=== PATIENT | female | born 1995 | race Caucasian/White ===

== ENCOUNTER 2016-04-27 08:36 | Emergency (ER) | payer OTHER ==
[2016-04-27 08:41] VITALS: RESP 18
[2016-04-27] MEDS ORDERED: FAMOTIDINE 20 MG/2 ML VIAL IV STA (08:47)
[2016-04-27] MEDS ORDERED: methylPREDNISolone SOD SUCCI 125 MG/2 ML VIAL IV STA (08:47)
--- NOTE | 2016-04-27 08:57 | ED ---
General Adult HPI - General Chief complaint: Nausea/Vomiting/Diarrhea Stated complaint: rash Time Seen by Provider: 04/27/16 08:41 Source: patient, EMS, RN notes reviewed Mode of arrival: EMS Limitations: no limitations - History of Present Illness Initial comments: 20-year-old female presents emergency Department chief complaint rash. Patient states started the last night early this morning. Patient states she went to sleep more upright was worse. Patient has not taken anything for. Patient was given Benadryl, Zofran by EMS and which symptoms are starting to improve. She states she was. She. Patient denies any new soaps, lotions, detergents. Patient states that it's from her head to her distal leg. Patient denies any new medications or contacts with similar symptoms. Patient states she has no difficulty breathing or difficulty swallowing. - Related Data Previous Rx's Medication Instructions Recorded diphenhydrAMINE [Benadryl] 50 mg PO QID PRN #20 capsule 04/27/16 predniSONE 50 mg PO DAILY #3 tab 04/27/16 Allergies Allergy/AdvReac Type Severity Reaction Status Date / Time No Known Allergies Allergy Verified 04/27/16 09:05 Review of Systems ROS Statement: Those systems with pertinent positive or pertinent negative responses have been documented in the HPI. ROS Other: All systems not noted in ROS Statement are negative. Past Medical History Past Medical History: Asthma Additional Past Medical History / Comment(s): PT STATES OCCASIONAL SHARP PAIN IN CHEST WHEN SHE TAKES A BREATH - STATES HER FATHER HAS THE SAME PROBLEM., MISSED -DENIES ANY VAGINAL BLEEDING. History of Any Multi-Drug Resistant Organisms: None Reported Past Surgical History: Orthopedic Surgery Additional Past Surgical History / Comment(s): left wrist fx, d and c 2014 Past Anesthesia/Blood Transfusion Reactions: No Reported Reaction Additional Past Anesthesia/Blood Transfusion Reaction / Comment(s): STATES SHE WOKE UP CRYING. Past Psychological History: Anxiety, Bipolar, Depression Additional Psychological History / Comment(s): no meds x 2 years Smoking Status: Current every day smoker Past Alcohol Use History: None Reported Additional Past Alcohol Use History / Comment(s): STATES NO ALCOHOL FOR 2 MONTHS. Past Drug Use History: Cocaine, Marijuana Additional Drug Use History / Comment(s): SMOKES MARIJUANA DAILY- quit 08/20/2015 - Past Family History Mother Family Medical History: No Reported History General Exam Limitations: no limitations General appearance: alert, in no apparent distress Head exam: Present: atraumatic, normocephalic, normal inspection Eye exam: Present: normal appearance, PERRL, EOMI. Absent: scleral icterus, conjunctival injection, periorbital swelling ENT exam: Present: normal exam, normal oropharynx, mucous membranes moist, TM's normal bilaterally Neck exam: Present: normal inspection. Absent: tenderness, meningismus, lymphadenopathy Respiratory exam: Present: normal lung sounds bilaterally. Absent: respiratory distress, wheezes, rales, rhonchi, stridor Cardiovascular Exam: Present: regular rate, normal rhythm, normal heart sounds. Absent: systolic murmur, diastolic murmur, rubs, gallop, clicks Neurological exam: Present: alert, oriented X3, CN II-XII intact Skin exam: Present: rash, urticaria (Diffuse urticaria varying sizes from the head and to the mid lower leg) Course Vital Signs 04/27/16 08:38 Temperature 98.9 F Pulse Rate 114 H Respiratory 18 Rate Blood Pressure 98/63 O2 Sat by Pulse 96 Oximetry Medical Decision Making - Medical Decision Making 20-year-old female presented for rash. Patient's rash has resolved after sign metal, Benadryl, Pepcid. Patient had urticaria noted. Patient will be discharged on Bentyl, prednisone. Return parameters were discussed. Disposition Clinical Impression: Urticaria Disposition: HOME SELF-CARE Condition: Stable Instructions: Urticaria (ED) Additional Instructions: Please return to the Emergency Department if symptoms worsen or any other concerns. Prescriptions: diphenhydrAMINE [Benadryl] 50 mg PO QID PRN #20 capsule PRN Reason: ALLERGIC symptoms predniSONE 50 mg PO DAILY #3 tab Time of Disposition: 09:53
[2016-04-27 10:15] VITALS: BP 110/68; PULSE 79; TEMP 97.8
== END 2016-04-27 10:15 | disposition home or self-care (01) ==
LOC: EC 08:36
DX: L50.9 Urticaria, unspecified (principal); R11.2 Nausea with vomiting, unspecified; R19.7 Diarrhea, unspecified; F17.200 Nicotine dependence, unspecified, uncomplicated
CPT/HCPCS: 96374; 96375; 99284; J2930

== ENCOUNTER 2016-04-28 11:29 | Emergency (ER) | payer OTHER ==
[2016-04-28 11:37] VITALS: BP 110/56; PULSE 87; RESP 16; TEMP 97.7
[2016-04-28] MEDS ORDERED: methylPREDNISolone SOD SUCCI 125 MG/2 ML VIAL IV STA (11:38)
[2016-04-28] MEDS ORDERED: FAMOTIDINE 20 MG/2 ML VIAL IV STA (11:38)
--- NOTE | 2016-04-28 11:41 | ED ---
Allergic Reaction HPI - General Chief complaint: Allergic Reaction Stated complaint: Allergic Reaction Time Seen by Provider: 04/28/16 11:34 Source: patient, EMS, RN notes reviewed Mode of arrival: EMS Limitations: no limitations - History of Present Illness Initial Comments: 20-year-old female presents emergency Department chief complaint hives. Patient was seen here yesterday diagnosed with urticaria. Patient states she did not take any medications as she was directed. Patient states that she cannot make it the pharmacy though the pharmacy was open here. She states that she went home. Patient woke up today with similar rash. Patient states she's been itching. Denies any difficulty breathing or difficulty swallowing. - Related Data Previous Rx's Medication Instructions Recorded diphenhydrAMINE [Benadryl] 50 mg PO QID PRN #20 capsule 04/28/16 predniSONE 50 mg PO DAILY #3 tab 04/28/16 Allergies Allergy/AdvReac Type Severity Reaction Status Date / Time No Known Allergies Allergy Verified 04/28/16 11:35 Review of Systems ROS Statement: Those systems with pertinent positive or pertinent negative responses have been documented in the HPI. ROS Other: All systems not noted in ROS Statement are negative. Past Medical History Past Medical History: Asthma Additional Past Medical History / Comment(s): PT STATES OCCASIONAL SHARP PAIN IN CHEST WHEN SHE TAKES A BREATH - STATES HER FATHER HAS THE SAME PROBLEM., MISSED -DENIES ANY VAGINAL BLEEDING. History of Any Multi-Drug Resistant Organisms: None Reported Past Surgical History: Orthopedic Surgery Additional Past Surgical History / Comment(s): left wrist fx, d and c 2014 Past Anesthesia/Blood Transfusion Reactions: No Reported Reaction Additional Past Anesthesia/Blood Transfusion Reaction / Comment(s): STATES SHE WOKE UP CRYING. Past Psychological History: Anxiety, Bipolar, Depression Additional Psychological History / Comment(s): no meds x 2 years Smoking Status: Current every day smoker Past Alcohol Use History: None Reported Additional Past Alcohol Use History / Comment(s): STATES NO ALCOHOL FOR 2 MONTHS. Past Drug Use History: Marijuana Additional Drug Use History / Comment(s): SMOKES MARIJUANA DAILY- quit 08/20/2015 - Past Family History Mother Family Medical History: No Reported History General Exam Limitations: no limitations General appearance: alert, in no apparent distress Head exam: Present: atraumatic, normocephalic, normal inspection Eye exam: Present: normal appearance, PERRL, EOMI. Absent: scleral icterus, conjunctival injection, periorbital swelling ENT exam: Present: normal oropharynx, mucous membranes moist Neck exam: Present: normal inspection. Absent: tenderness, meningismus, lymphadenopathy Respiratory exam: Present: normal lung sounds bilaterally. Absent: respiratory distress, wheezes, rales, rhonchi, stridor Cardiovascular Exam: Present: regular rate, normal rhythm, normal heart sounds. Absent: systolic murmur, diastolic murmur, rubs, gallop, clicks Skin exam: Present: urticaria (Noted on the arms, right torso region) Course Vital Signs 04/28/16 11:32 Temperature 97.7 F Pulse Rate 87 Respiratory 16 Rate Blood Pressure 110/56 O2 Sat by Pulse 97 Oximetry Medical Decision Making - Medical Decision Making 20-year-old female presented for urticaria. Patient was given medication yesterday in did resolve. She has not taken medications as prescribed. Patient will be written prescriptions again advised to go directly to the pharmacy here. Patient was given return parameters. Disposition Clinical Impression: Urticaria Disposition: HOME SELF-CARE Condition: Stable Instructions: Urticaria (ED) Additional Instructions: Please return to the Emergency Department if symptoms worsen or any other concerns. Prescriptions: diphenhydrAMINE [Benadryl] 50 mg PO QID PRN #20 capsule PRN Reason: ALLERGIC symptoms predniSONE 50 mg PO DAILY #3 tab Referrals: None,Stated [Primary Care Provider] - 1-2 days Time of Disposition: 12:04
== END 2016-04-28 12:26 | disposition home or self-care (01) ==
LOC: EC 11:29
DX: L50.9 Urticaria, unspecified (principal); F17.200 Nicotine dependence, unspecified, uncomplicated
CPT/HCPCS: 99284; 96374; 96375; J2930

== ENCOUNTER 2016-04-28 22:33 | Observation (INO) | payer OTHER ==
--- NOTE | 2016-04-28 22:42 | ED ---
General Adult HPI - General Stated complaint: Overdose, Mental Health Time Seen by Provider: 04/28/16 22:37 Source: RN notes reviewed, old records reviewed - History of Present Illness Initial comments: This is a 20-year-old female here for evaluation. This patient presents to ER for evaluation of overdose. Patient admits to depression and suicidal thoughts. Patient took reportedly allegedly a full bottle of Benadryl, 2050 mg tabs, an attempt at suicide. Patient denies any other drugs or alcohol. Patient does not have significant psychiatric disease - Related Data Previous Rx's Medication Instructions Recorded diphenhydrAMINE [Benadryl] 50 mg PO QID PRN #20 capsule 04/28/16 predniSONE 50 mg PO DAILY #3 tab 04/28/16 Allergies Allergy/AdvReac Type Severity Reaction Status Date / Time No Known Allergies Allergy Verified 04/28/16 22:37 Review of Systems ROS Statement: Those systems with pertinent positive or pertinent negative responses have been documented in the HPI. ROS Other: All systems not noted in ROS Statement are negative. Past Medical History Past Medical History: Asthma Additional Past Medical History / Comment(s): PT STATES OCCASIONAL SHARP PAIN IN CHEST WHEN SHE TAKES A BREATH - STATES HER FATHER HAS THE SAME PROBLEM., MISSED -DENIES ANY VAGINAL BLEEDING. History of Any Multi-Drug Resistant Organisms: None Reported Past Surgical History: Orthopedic Surgery Additional Past Surgical History / Comment(s): left wrist fx, d and c 2014 Past Anesthesia/Blood Transfusion Reactions: No Reported Reaction Additional Past Anesthesia/Blood Transfusion Reaction / Comment(s): STATES SHE WOKE UP CRYING. Past Psychological History: Anxiety, Bipolar, Depression Additional Psychological History / Comment(s): no meds x 2 years Smoking Status: Current every day smoker Past Alcohol Use History: None Reported Additional Past Alcohol Use History / Comment(s): STATES NO ALCOHOL FOR 2 MONTHS. Past Drug Use History: Marijuana Additional Drug Use History / Comment(s): SMOKES MARIJUANA DAILY- quit 08/20/2015 - Past Family History Mother Family Medical History: No Reported History General Exam Limitations: altered mental status General appearance: alert, anxious, in distress Head exam: Present: atraumatic, normocephalic, normal inspection Eye exam: Present: normal appearance, PERRL, EOMI. Absent: scleral icterus, conjunctival injection, periorbital swelling ENT exam: Present: normal exam, mucous membranes moist Neck exam: Present: normal inspection. Absent: tenderness, meningismus, lymphadenopathy Respiratory exam: Present: normal lung sounds bilaterally. Absent: respiratory distress, wheezes, rales, rhonchi, stridor Cardiovascular Exam: Present: regular rate, normal rhythm, normal heart sounds. Absent: systolic murmur, diastolic murmur, rubs, gallop, clicks GI/Abdominal exam: Present: soft, normal bowel sounds. Absent: distended, tenderness, guarding, rebound, rigid Extremities exam: Present: normal inspection, full ROM, normal capillary refill. Absent: tenderness, pedal edema, joint swelling, calf tenderness Back exam: Present: normal inspection Neurological exam: Present: alert, oriented X3, CN II-XII intact Psychiatric exam: Present: depressed, agitated, flat affect, suicidal ideation Skin exam: Present: warm, dry, intact, normal color. Absent: rash Course Vital Signs 04/28/16 22:37 Temperature 98.4 F Pulse Rate 89 Respiratory 18 Rate Blood Pressure 140/85 O2 Sat by Pulse 98 Oximetry EKG Findings - EKG Comments: EKG Findings:: EKG shows normal sinus rhythm rate of 94, DC 1:30, QRS 86, QTC 447 Medical Decision Making - Medical Decision Making 2390 ER for evaluation of drug overdose and suicide attempt, patient found to take unknown ingestion, suspected Benadryl overdose. Patient initially monitored for hemodynamic and cardiovascular stability, will be admitted to the floor for continuing monitoring. - Lab Data Result diagrams: 04/28/16 23:05 04/28/16 23:05 Lab Results 04/28/16 04/28/16 04/28/16 Range/Units 23:05 23:05 23:05 WBC 10.4 (4.0-11.0) k/uL RBC 5.26 (3.80-5.40) m/uL Hgb 13.5 (11.4-16.0) gm/dL Hct 41.7 (34.0-46.0) % MCV 79.4 L (80.0-100.0) fL MCH 25.8 (25.0-35.0) pg MCHC 32.5 (31.0-37.0) g/dL RDW 14.9 (11.5-15.5) % Plt Count 221 (150-450) k/uL Neutrophils % 90 % Lymphocytes % 6 % Monocytes % 3 % Eosinophils % 0 % Basophils % 0 % Neutrophils # 9.4 H (1.3-7.7) k/uL Lymphocytes # 0.6 L (1.0-4.8) k/uL Monocytes # 0.3 (0-1.0) k/uL Eosinophils # 0.0 (0-0.7) k/uL Basophils # 0.0 (0-0.2) k/uL PT 11.0 (9.0-12.0) sec INR 1.1 (<1.1) Sodium 141 (137-145) mmol/L Potassium 4.1 (3.5-5.1) mmol/L Chloride 107 (98-107) mmol/L Carbon Dioxide 23 (22-30) mmol/L Anion Gap 11 mmol/L BUN 11 (7-17) mg/dL Creatinine 0.60 (0.52-1.04) mg/dL Est GFR (MDRD) Af Amer >60 (>60 ml/min/1.73 sqM) Est GFR (MDRD) Non-Af >60 (>60 ml/min/1.73 sqM) Glucose 116 H (74-99) mg/dL Calcium 9.1 (8.4-10.2) mg/dL Total Bilirubin 0.3 (0.2-1.3) mg/dL AST 15 (14-36) U/L ALT 27 (9-52) U/L Alkaline Phosphatase 55 (38-126) U/L Total Protein 6.2 L (6.3-8.2) g/dL Albumin 3.7 (3.5-5.0) g/dL Lipase (23-300) U/L Urine Color Urine Appearance (Clear) Urine pH (5.0-8.0) Ur Specific [place] (1.001-1.035) Urine Protein (Negative) Urine Glucose (UA) (Negative) Urine Ketones (Negative) Urine Blood (Negative) Urine Nitrate (Negative) Urine Bilirubin (Negative) Urine Urobilinogen (<2.0) mg/dL Ur Leukocyte Esterase (Negative) Urine HCG, Qual (Not Detectd) Salicylates <1.0 mg/dL Urine Opiates Screen (NotDetected) Ur Oxycodone Screen (NotDetected) Urine Methadone Screen (NotDetected) Ur Propoxyphene Screen (NotDetected) Acetaminophen <10.0 ug/mL Ur Barbiturates Screen (NotDetected) U Tricyclic Antidepress (NotDetected) Ur Phencyclidine Scrn (NotDetected) Ur Amphetamines Screen (NotDetected) U Methamphetamines Scrn (NotDetected) U Benzodiazepines Scrn (NotDetected) Urine Cocaine Screen (NotDetected) U Marijuana (THC) Screen (NotDetected) Serum Alcohol <10 mg/dL 04/28/16 04/28/16 04/28/16 Range/Units 23:05 23:18 23:18 WBC (4.0-11.0) k/uL RBC (3.80-5.40) m/uL Hgb (11.4-16.0) gm/dL Hct (34.0-46.0) % MCV (80.0-100.0) fL MCH (25.0-35.0) pg MCHC (31.0-37.0) g/dL RDW (11.5-15.5) % Plt Count (150-450) k/uL Neutrophils % % Lymphocytes % % Monocytes % % Eosinophils % % Basophils % % Neutrophils # (1.3-7.7) k/uL Lymphocytes # (1.0-4.8) k/uL Monocytes # (0-1.0) k/uL Eosinophils # (0-0.7) k/uL Basophils # (0-0.2) k/uL PT (9.0-12.0) sec INR (<1.1) Sodium (137-145) mmol/L Potassium (3.5-5.1) mmol/L Chloride (98-107) mmol/L Carbon Dioxide (22-30) mmol/L Anion Gap mmol/L BUN (7-17) mg/dL Creatinine (0.52-1.04) mg/dL Est GFR (MDRD) Af Amer (>60 ml/min/1.73 sqM) Est GFR (MDRD) Non-Af (>60 ml/min/1.73 sqM) Glucose (74-99) mg/dL Calcium (8.4-10.2) mg/dL Total Bilirubin (0.2-1.3) mg/dL AST (14-36) U/L ALT (9-52) U/L Alkaline Phosphatase (38-126) U/L Total Protein (6.3-8.2) g/dL Albumin (3.5-5.0) g/dL Lipase 67 (23-300) U/L Urine Color Yellow Urine Appearance Clear (Clear) Urine pH 6.5 (5.0-8.0) Ur Specific [place] 1.014 (1.001-1.035) Urine Protein Trace H (Negative) Urine Glucose (UA) Negative (Negative) Urine Ketones Negative (Negative) Urine Blood Negative (Negative) Urine Nitrate Negative (Negative) Urine Bilirubin Negative (Negative) Urine Urobilinogen <2.0 (<2.0) mg/dL Ur Leukocyte Esterase Negative (Negative) Urine HCG, Qual (Not Detectd) Salicylates mg/dL Urine Opiates Screen Not Detected (NotDetected) Ur Oxycodone Screen Not Detected (NotDetected) Urine Methadone Screen Not Detected (NotDetected) Ur Propoxyphene Screen Not Detected (NotDetected) Acetaminophen ug/mL Ur Barbiturates Screen Not Detected (NotDetected) U Tricyclic Antidepress Not Detected (NotDetected) Ur Phencyclidine Scrn Not Detected (NotDetected) Ur Amphetamines Screen Not Detected (NotDetected) U Methamphetamines Scrn Not Detected (NotDetected) U Benzodiazepines Scrn Not Detected (NotDetected) Urine Cocaine Screen Not Detected (NotDetected) U Marijuana (THC) Screen Detected H (NotDetected) Serum Alcohol mg/dL 04/28/16 Range/Units 23:18 WBC (4.0-11.0) k/uL RBC (3.80-5.40) m/uL Hgb (11.4-16.0) gm/dL Hct (34.0-46.0) % MCV (80.0-100.0) fL MCH (25.0-35.0) pg MCHC (31.0-37.0) g/dL RDW (11.5-15.5) % Plt Count (150-450) k/uL Neutrophils % % Lymphocytes % % Monocytes % % Eosinophils % % Basophils % % Neutrophils # (1.3-7.7) k/uL Lymphocytes # (1.0-4.8) k/uL Monocytes # (0-1.0) k/uL Eosinophils # (0-0.7) k/uL Basophils # (0-0.2) k/uL PT (9.0-12.0) sec INR (<1.1) Sodium (137-145) mmol/L Potassium (3.5-5.1) mmol/L Chloride (98-107) mmol/L Carbon Dioxide (22-30) mmol/L Anion Gap mmol/L BUN (7-17) mg/dL Creatinine (0.52-1.04) mg/dL Est GFR (MDRD) Af Amer (>60 ml/min/1.73 sqM) Est GFR (MDRD) Non-Af (>60 ml/min/1.73 sqM) Glucose (74-99) mg/dL Calcium (8.4-10.2) mg/dL Total Bilirubin (0.2-1.3) mg/dL AST (14-36) U/L ALT (9-52) U/L Alkaline Phosphatase (38-126) U/L Total Protein (6.3-8.2) g/dL Albumin (3.5-5.0) g/dL Lipase (23-300) U/L Urine Color Urine Appearance (Clear) Urine pH (5.0-8.0) Ur Specific [place] (1.001-1.035) Urine Protein (Negative) Urine Glucose (UA) (Negative) Urine Ketones (Negative) Urine Blood (Negative) Urine Nitrate (Negative) Urine Bilirubin (Negative) Urine Urobilinogen (<2.0) mg/dL Ur Leukocyte Esterase (Negative) Urine HCG, Qual Not Detected (Not Detectd) Salicylates mg/dL Urine Opiates Screen (NotDetected) Ur Oxycodone Screen (NotDetected) Urine Methadone Screen (NotDetected) Ur Propoxyphene Screen (NotDetected) Acetaminophen ug/mL Ur Barbiturates Screen (NotDetected) U Tricyclic Antidepress (NotDetected) Ur Phencyclidine Scrn (NotDetected) Ur Amphetamines Screen (NotDetected) U Methamphetamines Scrn (NotDetected) U Benzodiazepines Scrn (NotDetected) Urine Cocaine Screen (NotDetected) U Marijuana (THC) Screen (NotDetected) Serum Alcohol mg/dL Critical Care Time Critical Care Time: Yes Total Critical Care Time: 31 Disposition Clinical Impression: Drug overdose, Anticholinergic drug overdose, Suicide attempt Disposition: ADMITTED IP TO THIS [facility] Condition: Fair Referrals: None,Stated [Primary Care Provider] - 1-2 days
[2016-04-28] MEDS ORDERED: ACTIVATED CHARCOAL 50 GM/240 ML BOTTLE NG-TUBE STA (22:52)
[2016-04-28] MEDS ORDERED: SODIUM CHLORIDE 0.9% 1,000 ML IV STA (22:52)
[2016-04-28] MEDS ORDERED: LORazepam 2 MG/ML SYRINGE IV PRN (22:53)
[2016-04-28 23:21] LABS: Basophils % (A) 0 %; CH 26.7; CHCM 33.8; Eosinophils % (A) 0 %; HCT 41.7 % (34.0-46.0); HDW 2.66; HGB 13.5 gm/dL (11.4-16.0); Luc # (Auto) 0.05; Luc % (Auto) 1; Lymphocytes # (A) 0.6 k/uL (1.0-4.8); Lymphocytes % (A) 6 %; MCH 25.8 pg (25.0-35.0); MCHC 32.5 g/dL (31.0-37.0); MCV 79.4 fL (80.0-100.0); Mean Platelet Volume 8.1; Monocytes # (A) 0.3 k/uL (0-1.0); Monocytes % (A) 3 %; Neutrophils # (A) 9.4 k/uL (1.3-7.7); Neutrophils % (A) 90 %; RBC 5.26 m/uL (3.80-5.40); RDW 14.9 % (11.5-15.5); WBC 10.4 k/uL (4.0-11.0); WBC (Perox) 10.47
[2016-04-28 23:27] LABS: INR 1.1 (<1.1)
[2016-04-28 23:27] LABS: Appearance,Urine Clear (Clear); Bilirubin,Urine Negative (Negative); Glucose,Urine (UA) Negative (Negative); Ketones,Urine Negative (Negative); Leukocyte Esterase,Urine Negative (Negative); Nitrite,Urine Negative (Negative); PH, Urine 6.5 (5.0-8.0); Protein,Urine Trace (Negative); Specific Gravity,Urine 1.014 (1.001-1.035); UA Billing (MACRO vs. MICRO) CHEM; Urobilinogen,Urine <2.0 mg/dL (<2.0)
[2016-04-28 23:30] LABS: ALT 27 U/L (9-52); AST 15 U/L (14-36); Acetaminophen <10.0 ug/mL; Alcohol <10 mg/dL; Alkaline Phosphatase 55 U/L (38-126); Anion Gap 11 mmol/L; Blood Urea Nitrogen 11 mg/dL (7-17); Calcium 9.1 mg/dL (8.4-10.2); Carbon Dioxide 23 mmol/L (22-30); Chloride 107 mmol/L (98-107); Glucose 116 mg/dL (74-99); Non-African American GFR(MDRD) >60 (>60 ml/min/1.73 sqM); Potassium 4.1 mmol/L (3.5-5.1); Salicylate <1.0 mg/dL; Sodium 141 mmol/L (137-145); Total Bilirubin 0.3 mg/dL (0.2-1.3); Total Protein 6.2 g/dL (6.3-8.2)
[2016-04-28] MEDS ORDERED: SODIUM CHLORIDE 0.9% 1,000 ML IV ONE (23:48)
[2016-04-29 00:04] LABS: Creatine Kinase 28 U/L (30-135)
[2016-04-29 00:14] LABS: Creatine Kinase MB <0.2 ng/mL (0.0-2.4)
[2016-04-29 00:40] LABS: Troponin I <0.012 ng/mL (0.000-0.034)
[2016-04-29 01:14] VITALS: BMI 31.4
--- NOTE | 2016-04-29 11:27 | P.NPCON ---
History of Present Illness - Reason for Consult acute renal failure - History of Present Illness Patient is a 20-year-old white female who presented to the ER for evaluation of overdose. Patient had apparently been depressed and had suicidal ideation she come to full bottle of Benadryl at this time patient is not communicating much she does not give me the amount that she had actually taken. Her serum creatinine is at 0.6 mg/dL. A sitter is present at bedside and the she stated that patient has been voiding. There is no prior history of kidney diseases. Drug screen is positive for marijuana. Review of Systems No active bleeding noted patient is comfortable no nausea or vomiting noted. Patient denies abdominal pain no chest pains Past Medical History Past Medical History: Asthma Additional Past Medical History / Comment(s): PT STATES OCCASIONAL SHARP PAIN IN CHEST WHEN SHE TAKES A BREATH - STATES HER FATHER HAS THE SAME PROBLEM., MISSED -DENIES ANY VAGINAL BLEEDING. History of Any Multi-Drug Resistant Organisms: None Reported Past Surgical History: Orthopedic Surgery Additional Past Surgical History / Comment(s): left wrist fx, d and c 2014 Past Anesthesia/Blood Transfusion Reactions: No Reported Reaction Additional Past Anesthesia/Blood Transfusion Reaction / Comment(s): STATES SHE WOKE UP CRYING. Past Psychological History: Anxiety, Bipolar, Depression Additional Psychological History / Comment(s): no meds x 2 years Smoking Status: Current every day smoker Past Alcohol Use History: None Reported Additional Past Alcohol Use History / Comment(s): STATES NO ALCOHOL FOR 2 MONTHS. Past Drug Use History: Marijuana Additional Drug Use History / Comment(s): SMOKES MARIJUANA DAILY - Past Family History Mother Family Medical History: No Reported History Medications and Allergies Allergies Allergy/AdvReac Type Severity Reaction Status Date / Time No Known Allergies Allergy Verified 04/28/16 22:37 Physical Exam Vitals: Vital Signs Temp Pulse Pulse Resp BP BP Pulse Ox 04/29/16 09:15 97.3 F L 64 20 96/52 98 04/29/16 04:00 97.9 F 90 18 126/86 96 04/29/16 01:00 97.6 F 101 H 18 142/105 97 04/29/16 00:55 97.6 F 101 H 18 142/105 97 04/28/16 23:57 98.1 F 80 18 122/77 98 Intake and Output 04/28/16 04/29/16 04/29/16 22:59 06:59 14:59 Intake Total 1600 236 Output Total 0 Balance 1600 236 Intake: IV 600 Sodium Chloride 0.9% 1, 600 000 ml @ 100 mls/hr IV . Q10H ONE Rx#:[id number] Amount of Fluid Infused ( 1000 ml) Oral 236 Output: Urine 0 Other: Voiding Method Toilet # Voids 1 Weight 88.2 kg On examination patient is comfortable blood pressure is 96/52 heart rate 64/m she is afebrile change atraumatic no lymphatic pupils are equal round JVP is elevated, lymph nodes not palpable Examination of the heart S1 and S2 Examination lungs bilateral breath sounds are heard no crackles or wheezing is heard Abdomen is soft nontender Examination lower extremity shows no evidence of edema TUB CHUCKER exam is grossly intact patient has been moving all 4 extremities. Results - Lab Results Most recent lab results Calcium 9.1 mg/dL (8.4-10.2) 04/28/16 23:05 04/28/16 23:05 04/28/16 23:05 Assessment and Plan Plan: Assessment 1. Benadryl overdose currently patient is awake she is answering Questions Appropriately but Not Wanting to Talk Much. 2. Suicidal attempt, currently with a sitter Plan Continue IV fluids no other changes from nephrology standpoint at this time.
--- NOTE | 2016-04-29 14:18 | P.CON ---
Psychiatric Consult - . Consult:: 04/29/16 13:53 Psychiatric consultation notes. Cynthia Cao is a 20-year-old white female was seen on psychiatric evaluation where she was on the medical floor where she was admitted with overdose off possibly 20 mg Benadryl tablets, an attempt at suicide. In the ER patient reportedly admitted having depression and suicidal thoughts. There was a petition made by police department secretary, Deputy Vazquez, which states "Cynthia advised me that if she wanted to take her own life it was none of my business and I was not the first person to try and stop her from taking her own life. She did advise me that she had taken her own pills to try and overdose. B advised me he is her father and she did take her in their prescription of Benadryl in an attempt to ." Patient when seen was reasonably cooperative, though she was sleeping as she had not slept all through last night. She was willing to cooperate with evaluation though she and at that there is so much she needs to talk about as to her problems, however having difficulty to straighten her mind to present them in an appropriate fashion. Reported that she has been feeling quite angry for more than a year and yesterday she snapped and at that time did not want to live anymore and took all her Benadryl pills. Though she reported that she was very angry with her father, she indicated there were many other things that had been going on in her life that had been causing too much stress for her to deal with. Patient is interested 3 siblings and she was only one was living at home with parents, though recently her brother who lost his job also has moved back. Patient has high school graduation and until she became was working, and currently she has a 4-month-old baby. Baby's father is serving life in long-term for criminal sexual conduct with a minor. Patient is upset that her child has to grow up without a father. When she was in 10th grade she on her own requested to have a psychiatric consultation in counseling and patient's mother took her to a counseling center([facility]) and patient was able to discuss her personal issues with a counselor there. According to patient her mother who has multiple sclerosis, also started seeing the same counselor and patient was disappointed to learn that her counselor confided to her mother thinks that patient had talked about. Patient indicated to me that she lost stephanie in confiding with anybody and does not trust counseling anymore. On the other hand she specifically requested whether she could be prescribed antidepressant medications and she believes she is in need of treatment for depression. Denies ever having had any suicidal attempt or any substance abuse however smokes marijuana daily. Patient is considering leaving her parents house and live with a friend, babysitting for her. Patient appears to be agreeable for transfer to mental health unit for continuation of psychiatric treatment. Mental status examination. An average number built white female who is dressed in a hospital clothes and was confined to bed without any psychomotor disturbance. Her attention and concentration could be aroused and sustained without any difficulty. Patient was alert and cooperative, though she acknowledged having difficulty to sort out as to what exactly happened yesterday that resulted in her taking an overdose with suicidal intent. Apparently she has been depressed about many things including her child's father incarcerated for life. Her speech and thought process did not show any abnormal traits. Her thought content shows preoccupation with multiple stressors and her conflicts with parents, including plans to move out of the house. Patient acknowledges being depressed though her affect was appropriate. No evidence of any delusions or hallucinations. He was oriented to time place and person, her remote memory being intact, though she had difficulty to formulate and recall all the events that led to her to point of taking an overdose. General Information adequate. Seems to have fair degree of insight as to need for treatment and judgment at this time though they appear to have been defective yesterday based on the history she gave. Intelligence average. Assessment. Patient is definitely having depressive disorder. Detailed history to be obtained to rule out any component of bipolar disorder as her mother also is under treatment, though that could be secondary to her multiple sclerosis. Patient needs to be transferred to mental health unit and meanwhile suggest Celexa 20 mg daily. Thank you for the referral.
[2016-04-29 15:35] VITALS: RESP 16
[2016-04-29] MEDS ORDERED: HYDROCORTISONE 1% CREAM 30 GM TUBE TOPICAL PRN (16:29)
[2016-04-29] MEDS ORDERED: methylPREDNISolone SOD SUCCI 125 MG/2 ML VIAL IM ONE (16:29)
--- NOTE | 2016-04-29 16:51 | HP ---
H&P AND DISCHARGE SUMMARY DATE OF ADMISSION: This patient is a 20-year-old female who came in after overdosing on Benadryl. She took about 20 of 50 mg Benadryl. Patient is not drowsy at this point of time. Patient does not have any QT prolongation. Patient is getting IV fluids at 100 mL/hour. Patient is clinically doing well. Patient can be transferred to Inpatient Psychiatry. Patient denied any fever or chills. Patient denied any nausea or vomiting, abdominal pain. REVIEW OF SYSTEMS: CONSTITUTIONAL: No fever, no malaise, no fatigue. HEENT: No recent visual problems or hearing problems. Denied any sore throat. CARDIOVASCULAR: No chest pain, orthopnea, PND, no palpitations, no syncope. PULMONARY: No shortness of breath, no cough, no hemoptysis. GASTROINTESTINAL: No diarrhea, no nausea, no vomiting, no abdominal pain. Normoactive bowel sounds. NEUROLOGICAL: No headaches, no weakness, no numbness. HEMATOLOGICAL: Denies any bleeding or petechiae. GENITOURINARY: Denies any burning micturition, frequency, or urgency. MUSCULOSKELETAL/RHEUMATOLOGICAL: Denies any joint pain, swelling, or any muscle pain. ENDOCRINE: Denies any polyuria or polydipsia. PSYCHIATRIC: As mentioned above. The rest of the 14 point review of systems is negative. Home medications include diphenhydramine and prednisone. ALLERGIES: NO KNOWN DRUG ALLERGIES. Past medical history is significant for: 1. Asthma, not in acute exacerbation at this point of time. 2. Anxiety. 3. Bipolar disorder. 4. Depression. SOCIAL HISTORY: Patient does smoke every day, 1 pack per day. Denied any alcohol abuse. Occasional use of marijuana. Patient's urine drug screen is positive for marijuana. FAMILY HISTORY: Denied any family history of hypertension or diabetes mellitus. PHYSICAL EXAMINATION: VITAL SIGNS: Temperature 98.5, pulse of 60, respiratory rate of 20. Blood pressure is 89/52. Saturating at 96% on room air. GENERAL: The patient is alert and oriented x3, not in any acute distress. Well developed, well nourished. HEENT: Pupils are round and equally reacting to light. EOMI. No scleral icterus. No conjunctival pallor. Normocephalic, atraumatic. No pharyngeal erythema. No thyromegaly. CARDIOVASCULAR: S1 and S2 present. No murmurs, rubs, or gallops. PULMONARY: Chest is clear to auscultation, no wheezing or crackles. ABDOMEN: Soft, nontender, nondistended, normoactive bowel sounds. No palpable organomegaly. MUSCULOSKELETAL: No joint swelling or deformity. EXTREMITIES: No cyanosis, clubbing, or pedal edema. NEUROLOGICAL: Gross neurological examination did not reveal any focal deficits. SKIN: No rashes. PSYCHIATRIC: As mentioned above. LABORATORY DATA: As mentioned above. ASSESSMENT AND PLAN: 1. Drug overdose. Patient is clinically doing well, without any QT prolongation. Patient is medically stable to be transferred to psychiatric floor. 2. Asthma without any acute exacerbation. Patient can use albuterol as needed. Patient is medically cleared to be discharged to psychiatric floor. Further management of severe depression and suicidal ideations as per Psychiatry. 3. Suicide attempt and severe depression. Patient is started on Celexa.
[2016-04-29] MEDS ORDERED: methylPREDNISolone SOD SUCCI 125 MG/2 ML VIAL IV STA (17:04)
[2016-04-29 20:26] VITALS: BP 108/64; PULSE 66; TEMP 97.1
[2016-04-30] MEDS ORDERED: CITALOPRAM HYDROBROMIDE 20 MG TAB PO SCH (09:00)
== END 2016-04-29 21:37 ==
LOC: EC 22:33 → 6SEL 23:48
PROVIDERS: ADMIT Hospitalist; ATTEND Hospitalist
DX: T45.0X2A Poisoning by antiallergic and antiemetic drugs, intentional self-harm, initial encounter (principal); F12.90 Cannabis use, unspecified, uncomplicated; F17.210 Nicotine dependence, cigarettes, uncomplicated; F32.9 Major depressive disorder, single episode, unspecified; J45.909 Unspecified asthma, uncomplicated; Z82.0 Family history of epilepsy and other diseases of the nervous system
CPT/HCPCS: 99291 ×2; 96361 ×3; 96374 ×2; 96375; 99284; 36415; 93005; 80053; 82550; 82553; 83690; 84484; 85025; 85610; 81003; 81025; 80306; 83520 ×2; 80320; G0378 ×2; J2930 ×2

== ENCOUNTER 2016-04-29 20:13 | Inpatient (IN) | payer MEDICAID, OTHER ==
[2016-04-29] MEDS ORDERED: MAG HYDROX/AL HYDROX/SIMETH 30 ML CUP PO PRN (22:44)
[2016-04-29] MEDS ORDERED: ACETAMINOPHEN TAB 325 MG TAB PO PRN (22:44)
[2016-04-29] MEDS ORDERED: MAGNESIUM HYDROXIDE 2,400 MG/10 ML CUP PO PRN (22:44)
[2016-04-29] MEDS ORDERED: ALBUTEROL INHALER 60 PUFF/8 GM INHALER INHALATION PRN (22:46)
[2016-04-30 03:39] VITALS: BMI 31.6
[2016-04-30] MEDS ORDERED: cloNIDine HCL 0.1 MG TAB PO STA (04:00)
[2016-04-30] MEDS: CITALOPRAM HYDROBROMIDE 20 MG TAB PO SCH (09:29)
--- NOTE | 2016-04-30 15:55 | P.HP ---
Psychiatric H&P - . H&P Date: 04/30/16 History & Physical: Allergies Allergy/AdvReac Type Severity Reaction Status Date / Time No Known Allergies Allergy Verified 04/29/16 23:31 Vital Signs Temp 97.9 F 04/30/16 06:43 Pulse 68 04/30/16 06:43 Resp 16 04/30/16 06:43 BP 106/68 04/30/16 06:43 Pulse Ox Intake & Output 04/29/16 04/30/16 04/30/16 18:59 06:59 18:59 Weight 88.9 kg 04/30/16 15:46 IDENTIFYING DATA: A 20-year-old single female patient HPI: Patient admitted to the inpatient psychiatric unit as a voluntary patient transfer from the medical floor. She had been admitted to the medical floor status post overdose of Benadryl and she states steroid. Patient reports that stressful things happen and she got overwhelmed and ended up taking a bunch of pills. She says that she tried to take her life. She states that there is a bunch of pictures of her that reports to on the Internet and people were sharing them and making comments. She says she proceeded to take 19 50 mg Benadryl pills and two steroid pills. She states she got help because her mom heard her crying opened her door and saw empty pill bottles. Says she feels bad about trying to kill herself. She says there has not been a lot of depression lately she states that she's been happy since she had her daughter 4 months ago. She reports that prior to her she was on Celexa. She says after she had her baby she doesn't feel depressed besides the other night. She does state that on she got drunk and decided to snort some cocaine, says she tried the cocaine once. She denies being a significant worrier, denies any history of panic attacks. PAST PSYCHIATRIC HISTORY: She's been admitted to [facility] once when she was in the seventh or eighth grade after she tried overdose. That is her only other suicide attempt. She has been on Celexa in the past which she thinks helped her, Zoloft in the past which she thinks helped her and Vyvanse. She has history of ADHD. PMH: Denies ALLERGIES: No Known ALLERGIES MEDICATIONS: Tylenol when necessary, Maalox when necessary, Ventolin when necessary, Celexa, milk of magnesia when necessary CHEMICAL DEPENDENCY HISTORY: She states that she smokes cigarettes, marijuana every other day or sometimes daily. Reports that New Year's Margie she got drunk and snorted some cocaine. FAMILY PSYCHIATRIC HISTORY: Maternal grandmother with depression, schizophrenia FAMILY CHEMICAL DEPENDENCY HISTORY: Not known at this time. SOCIAL HISTORY: She has 1 daughter who is 4 months old. No current relationship. She lives with her mom, daughter, brother, grandpa and dad. She is single, never been MENTAL STATUS EXAM: She is alert and cooperative with the interview. She has a tattoo on her right upper arm. Her speech is fluent, not rapid or pressured. Her thought processes organized. Her mood is described as "calm" and "shaken up." She denies any current thoughts of harm to self or others. Insight is adequate, judgment shows evidence of recent impairment. Cognitively she appears very grossly intact. STRENGTHS/WEAKNESSES: Strengths-some support; weaknesses-coping skills INTELLECTUAL FUNCTIONING: Average IMPRESSIONS: AXIS I : Unspecified depressive disorder; likely cannabis use disorder, rule out alcohol use disorder AXIS II: Deferred AXIS III: Status post multiple drug overdose AXIS IV: Psychosocial stressors AXIS V: 30 PLAN: Patient is admitted to the inpatient psychiatric unit [facility]. She'll be on SP 15 minute precautions. She'll participate group and activity therapies. Baseline laboratory workup will be done the patient and medical consultation will be ordered. We will reinitiate Celexa 20 more grams daily for depression component. We will monitor regarding any suicidal ideations. We will look into any family supports. We'll continue to cover this patient for Dr. Phelps through the weekend. Estimated length of stay 3-5 days. Prognosis is guarded.
--- NOTE | 2016-04-30 18:46 | CONS ---
REASON FOR CONSULT: Asthma. A 20-year-old female ( ) overdosing on Benadryl. Patient was watched overnight and was subsequently transferred to psychiatric facility inpatient, did not have ( ) at that time. Patient was not having any asthma exacerbation at that time. Patient denied any shortness of breath. Patient denied any fever, chills, nausea or vomiting. REVIEW OF SYSTEMS: CONSTITUTIONAL: No fever, no malaise, no fatigue. HEENT: No recent visual problems or hearing problems. Denied any sore throat. CARDIOVASCULAR: No chest pain, orthopnea, PND, no palpitations, no syncope. PULMONARY: No shortness of breath, no cough, no hemoptysis. GASTROINTESTINAL: No diarrhea, no nausea, no vomiting, no abdominal pain. Normoactive bowel sounds. NEUROLOGICAL: No headaches, no weakness, no numbness. HEMATOLOGICAL: Denies any bleeding or petechiae. GENITOURINARY: Denies any burning micturition, frequency, or urgency. MUSCULOSKELETAL/RHEUMATOLOGICAL: Denies any joint pain, swelling, or any muscle pain. ENDOCRINE: Denies any polyuria or polydipsia. PSYCHIATRIC: Defer to psychiatrist. The rest of the 14 point review of systems is negative. Home medications include: 1. Diphenhydramine. 2. Prednisone. ALLERGIES: No known drug allergies. PAST MEDICAL HISTORY: Asthma, anxiety disorder, bipolar depression. SOCIAL HISTORY: Patient does smoke 1 pack per. Denied any alcohol use. Occasional marijuana use. FAMILY HISTORY: Denied any family history of hypertension or diabetes mellitus. PHYSICAL EXAMINATION: VITAL SIGNS: Temperature 98.4, pulse of 60, respiratory rate of 18, blood pressure is about 100/60, saturating at 96% on room air. GENERAL: The patient is alert and oriented x3, not in any acute distress. Well developed, well nourished. HEENT: Pupils are round and equally reacting to light. EOMI. No scleral icterus. No conjunctival pallor. Normocephalic, atraumatic. No pharyngeal erythema. No thyromegaly. CARDIOVASCULAR: S1 and S2 present. No murmurs, rubs, or gallops. PULMONARY: Chest is clear to auscultation, no wheezing or crackles. ABDOMEN: Soft, nontender, nondistended, normoactive bowel sounds. No palpable organomegaly. MUSCULOSKELETAL: No joint swelling or deformity. EXTREMITIES: No cyanosis, clubbing, or pedal edema. NEUROLOGICAL: Gross neurological examination did not reveal any focal deficits. SKIN: No rashes. LABORATORY DATA: None available. ASSESSMENT AND PLAN: 1. Drug overdose and suicidal ideation. Management as per Primary Service. 2. Asthma without any acute exacerbation. 3. Suicide attempt with severe depression. Management as per Primary Service. 4. From medical perspective, there is no further foundation for it. The patient is on ( ) and albuterol as needed and will sign off at this point of time. Call us back if you need us.
[2016-05-01] MEDS: CITALOPRAM HYDROBROMIDE 20 MG TAB PO SCH (10:28)
--- NOTE | 2016-05-01 19:39 | P.PN ---
Progress Note - Text Interval history: Patient seen in cross coverage today for Dr. Phelps. She presents with her grandma and sister as they were visiting. Patient is agreeable with him being in the session. She reports that her sleep was broken last night, relays that she naps during the day yesterday and as well today. She understands that this can affect her sleep at night. She does not voice any adverse psychotropic medication side effects. She would prefer not to take any medication for assistance with sleep at night. Grandmother inquires regarding availability of any assistance for the patient, example being assistance regarding her living situation. Discussed that she can talk further with social work staff regarding availability of resources in the community. The patient's godmother is currently taking care of her baby. Mental status exam: She is alert and cooperative. His speech is fluent, not rapid or pressured. Her mood seems to be improved and stable. She denies any thoughts of harm to self or others. There is no evidence of psychosis or agitation. Plan: Maintain Celexa as current. We'll monitor her mood, monitor regarding any suicidal ideations. Dr. Phelps will initiate care this patient starting tomorrow. Discussed her having a family support meeting upcoming.
[2016-05-02] MEDS: CITALOPRAM HYDROBROMIDE 20 MG TAB PO SCH (08:58)
--- NOTE | 2016-05-02 10:03 | P.PN ---
Progress Note - Text Interval history: The patient is found in group she follows me to an interview room. Documentation from Dr. Causey was reviewed. The patient presented to the hospital after she overdosed on Benadryl and a steroid. She took 19 Benadryl tablets and 1 steroid tablet. She states at that time her intent was to . This was in response to learning that someone had placed nude photos of her on Facebook. She felt overwhelmed and hopeless at the time. Here on the mental health unit she was restarted on Celexa which she states has helped her in the past but she had been off of it during her . She does have a 4-month-old daughter at home who is currently being cared for by the child godmother. The patient states that she is feeling better. She appreciates being here and away from her normal circumstances to think about what happened. She reports that she doesn't really want to and feels like a bad mom because of the overdose attempt. Mental status exam: The patient is an overweight female appearing her stated age. She is dressed in her own clothing eye contact is appropriate. She has visible tattoos. She reports Monday her mood was overwhelmed and hopeless she reports that it is improved today. Suicidal thoughts are resolving. No homicidal ideation intent or plan. No thoughts of harming her child. She is endorsing no symptoms of psychosis including hallucinations or specific delusions. Insight and judgment improving. She demonstrates no verbal or physical aggressiveness. Affect is constricted. Cognitive abilities appear grossly intact she is alert and oriented to person place and date. Thought process is linear she demonstrates no tangential thinking loose associations or flight of ideas. Plan: The patient will continue on the Celexa. We will continue to monitor her for safety. Social work will be asked to arrange a support meeting most likely involving her mother. She we'll continue participating in groups. If she demonstrates further clinical improvement I anticipate she will be appropriate for discharge in the next 1-2 days partially depending on family support. Vital signs reviewed.
[2016-05-03 03:01] VITALS: BP 120/65; PULSE 65; RESP 18; TEMP 98.1
[2016-05-03] MEDS: CITALOPRAM HYDROBROMIDE 20 MG TAB PO SCH (09:31)
--- NOTE | 2016-05-03 12:20 | P.DS ---
Providers Date of admission: 04/29/16 21:07 Expected date of discharge: 05/03/16 Attending physician: Jarret Phelps Consults: 04/30/16 06:21 Consult Physician Routine Consulting Provider: Hema Tavera Consult Reason/Comments: h&p and medical followup Do you want consulting provider notified?: Yes, Notify in am Primary care physician: Stated None - Discharge Diagnosis(es) (1) Major depressive disorder Current Visit: Yes Status: Acute Priority: High Hospital Course: Brief summary of admission note: This patient is a 20-year-old female who was admitted to the mental health unit from the medical floor after an intentional overdose with Benadryl and steroid medication. She states that she took numerous Benadryl's and few steroid pills as a suicide attempt. This was precipitated by learning that nude photographs of her were placed on the Internet. She became overwhelmed felt hopeless and overdosed. She was found by her mother who called 911. The patient was admitted to the mental health unit by Dr. Causey please see his assessment for full detail. Summary of hospital course: The patient was admitted to the mental health unit voluntarily. We reviewed her presenting symptoms and medication options. She was started on Celexa by Dr. Causey and we continue that medication as she has previously found it helpful. She reported a progressive improvement of symptoms while here and she feels that she has process this most recent crisis. A family meeting was held today facilitated by social work involving her father and he felt that she was safe to return home. The patient is reporting no side effects her medication. She has attended groups she has demonstrated no agitated behavior. We did request a medical consultation. The patient reports full resolution of any self-injurious thoughts and has considered other coping strategies. Mental status exam: The patient is an overweight female appearing her stated age. She seated calmly she presents with adequate hygiene grooming she is dressed in her own clothing. Eye contact is appropriate speech is fluent. She reports her mood is improved she is reporting no hopelessness thinking no suicidal ideation intent or plan. She reports no homicidal ideation intent or plan and specifically denies having any thoughts of harming her 4-month-old daughter. She endorses no auditory or visual hallucinations and she is endorsing no specific delusions as we reviewed several types. Speech is fluent nonpressured. Thought process is linear there is no evidence of circumstantial tangential thinking loose associations or flight of ideas. Insight and judgment have improved. There is no verbal or physical aggressiveness demonstrated. Her cognitive abilities have remained stable across the hospitalization short-term memory is grossly intact as she is able to recall events from the last 2 days. Affect is appropriately expresses including appropriate smiling. Impressions 1. Major depressive disorder recurrent severe without psychosis, cannabis use disorder 2. Rule out cluster B traits 3. Recent medication overdose Plan: The patient will be discharged mental health unit today to return home. Social work will arrange outpatient mental health follow-up. There is no imminent safety risk she is appropriate for transition to outpatient psychiatric care. She will continue on Celexa 20 mg daily. She is tolerating this medication well without any reported side effects. She is instructed to abstain from any use of alcohol and marijuana. She is not interested in chemical dependency treatment for her marijuana use. She is instructed to return to the hospital with any acute safety concerns. Patient Condition at Discharge: Stable Plan - Discharge Summary New Discharge Prescriptions: Citalopram Hydrobromide [CeleXA] 20 mg PO DAILY #30 tab Discharge Medication List Albuterol Inhaler [Ventolin Hfa Inhaler] 1 - 2 puff INHALATION Q6HR PRN #1 inhaler 04/29/16 [Rx] Citalopram Hydrobromide [CeleXA] 20 mg PO DAILY #30 tab 05/03/16 [Rx]
== END 2016-05-03 15:31 | disposition home or self-care (01) | DRG 885 ==
LOC: 3MHU 21:07
PROVIDERS: ADMIT Psychiatry & Neurology Psychiatry; ATTEND Psychiatry & Neurology Psychiatry
DX: F33.2 Major depressive disorder, recurrent severe without psychotic features (principal); R45.851 Suicidal ideations; E66.3 Overweight; F12.90 Cannabis use, unspecified, uncomplicated; F17.210 Nicotine dependence, cigarettes, uncomplicated; F90.9 Attention-deficit hyperactivity disorder, unspecified type; J45.909 Unspecified asthma, uncomplicated; F41.9 Anxiety disorder, unspecified; Z68.31 Body mass index [BMI] 31.0-31.9, adult; Z81.8 Family history of other mental and behavioral disorders
CPT/HCPCS: 94640

== ENCOUNTER 2016-06-04 15:43 | Emergency (ER) | payer OTHER ==
[2016-06-04 16:02] VITALS: BP 109/69; PULSE 75; RESP 20; TEMP 97.5
--- NOTE | 2016-06-04 16:42 | ED ---
General Adult HPI - General Chief complaint: Dental/Oral Stated complaint: Broken Tooth Time Seen by Provider: 06/04/16 16:19 Source: patient, RN notes reviewed Mode of arrival: ambulatory Limitations: no limitations - History of Present Illness Initial comments: This is a 20-year-old female presents with fractured tooth around 8:30 AM this morning. Patient states she noticed some pain once today and it was a sharp shooting pain but patient does not feel any pain right now. Patient has not noticed any drainage from this tooth. Patient states she does not currently have a dentist. Patient denies any chance of being . Patient denies any recent fever, chills, shortness breath, chest pain, abdominal pain, nausea/ vomiting/diarrhea, back pain, numbness, tingling, hematuria, headache, or visual changes, or any other complaints. - Related Data Previous Rx's Medication Instructions Recorded Albuterol Inhaler [Ventolin Hfa 1 - 2 puff INHALATION Q6HR PRN #1 04/29/16 Inhaler] inhaler Citalopram Hydrobromide [CeleXA] 20 mg PO DAILY #30 tab 05/03/16 Penicillin V Potassium [Pen Vee K] 500 mg PO BID 5 Days 06/04/16 Allergies Allergy/AdvReac Type Severity Reaction Status Date / Time No Known Allergies Allergy Verified 06/04/16 16:01 Review of Systems ROS Statement: Those systems with pertinent positive or pertinent negative responses have been documented in the HPI. ROS Other: All systems not noted in ROS Statement are negative. Past Medical History Past Medical History: Asthma Additional Past Medical History / Comment(s): PT STATES OCCASIONAL SHARP PAIN IN CHEST WHEN SHE TAKES A BREATH - STATES HER FATHER HAS THE SAME PROBLEM., MISSED -DENIES ANY VAGINAL BLEEDING. History of Any Multi-Drug Resistant Organisms: None Reported Past Surgical History: Orthopedic Surgery Additional Past Surgical History / Comment(s): left wrist fx, d and c 2014 Past Anesthesia/Blood Transfusion Reactions: No Reported Reaction Additional Past Anesthesia/Blood Transfusion Reaction / Comment(s): STATES SHE WOKE UP CRYING. Past Psychological History: Anxiety, Bipolar, Depression Additional Psychological History / Comment(s): no meds x 2 years Smoking Status: Current every day smoker Past Alcohol Use History: Occasional Additional Past Alcohol Use History / Comment(s): STATES NO ALCOHOL FOR 2 MONTHS. Past Drug Use History: Marijuana Additional Drug Use History / Comment(s): SMOKES MARIJUANA DAILY - Past Family History Mother Family Medical History: No Reported History General Exam - General Exam Comments Initial Comments: General: The patient is awake and alert, in no distress, and does not appear acutely ill. Eye: Pupils are equal, round and reactive to light, extra-ocular movements are intact. No nystagmus. There is normal conjunctiva bilaterally. No signs of icterus. Ears: TMs pink and pearly with intact cone of light bilaterally. Normal external ear canals Nose: Nasal turbinates pink and moist Mouth and throat: There is a fractured tooth #5. No erythema, purulent drainage or sign of abscess. There are moist mucous membranes and no oral lesions. Neck: The neck is supple, there is no tenderness or JVD. Cardiovascular: There is a regular rate and rhythm. No murmur, rub or gallop is appreciated. Respiratory: Lungs are clear to auscultation, respirations are non-labored, breath sounds are equal. No wheezes, stridor, rales, or rhonchi. Musculoskeletal: Normal ROM, no tenderness. Strength 5/5. Sensation intact. Pulses equal bilaterally 2+. Neurological: A&O x 3. CN II-XII intact, There are no obvious motor or sensory deficits. Coordination appears grossly intact. Speech is normal. Skin: Skin is warm and dry and no rashes or lesions are noted. Psychiatric: Cooperative, appropriate mood & affect, normal judgment. Limitations: no limitations Course Vital Signs 06/04/16 15:59 Temperature 97.5 F L Pulse Rate 75 Respiratory 20 Rate Blood Pressure 109/69 O2 Sat by Pulse 100 Oximetry Medical Decision Making - Medical Decision Making This is a 20-year-old female who presents with a fractured tooth that started today. On physical exam There is a fractured tooth #5. No erythema, purulent drainage or sign of abscess. There are moist mucous membranes and no oral lesions. I discussed the patient that she put on a course of amoxicillin to prevent infection. Discussed that patient should finish the entire course of antibiotics and use Tylenol and/or Motrin as needed for any pain. I discussed that patient will have to follow up with a dentist. Patient was given a dental referral today. Discussed return parameters. Patient was given a referral to primary care physician today. Discussed that patient should follow up with PCP in one to 2 days or return to the [facility] for any worsening symptoms or for any further concerns. Patient was receptive to this plan and patient will be discharged home. Disposition Clinical Impression: Fractured tooth Disposition: HOME SELF-CARE Condition: Good Instructions: Toothache (ED) Additional Instructions: Please finish entire course of antibiotics and use [id number] Tylenol and Motrin as needed for any pain. Please follow-up with the dentist as soon as possible.[facility] dental plan: [id number] [place] [address] , . [employer]: Have to pay $50 for x-rays and the rest is covered. [phone]. Please use medication as discussed. Please follow- up with family doctor in the next 2 days of symptoms have not improved. Please return to emergency room if the symptoms increase or worsen or for any other concerns. Prescriptions: Penicillin V Potassium [Pen Vee K] 500 mg PO BID 5 Days Referrals: Reynaldo Cisse MD [Primary Care Provider] - 1-2 days Eric Solano MD [STAFF PHYSICIAN] - 1-2 days Kathy Stanley MD [STAFF PHYSICIAN] - 1-2 days Time of Disposition: 16:40
== END 2016-06-04 16:43 | disposition home or self-care (01) ==
LOC: EC 15:43 → SUPCPDRO 15:43 → EC 16:43
DX: S02.5XXA Fracture of tooth (traumatic), initial encounter for closed fracture (principal); F17.200 Nicotine dependence, unspecified, uncomplicated; X58.XXXA Exposure to other specified factors, initial encounter; Y92.009 Unspecified place in unspecified non-institutional (private) residence as the place of occurrence of the external cause
CPT/HCPCS: 99282

== ENCOUNTER 2016-06-16 21:29 | Emergency (ER) | payer OTHER ==
[2016-06-16 21:43] VITALS: TEMP 98.8
--- NOTE | 2016-06-16 22:40 | ED ---
Female Urogenital HPI - General Chief complaint: Urogenital Stated complaint: poss UTI Time Seen by Provider: 06/16/16 21:47 Source: patient, RN notes reviewed Mode of arrival: ambulatory Limitations: no limitations - History of Present Illness Initial comments: Patient is a 20-year-old female presents to the emergency room for evaluation of vaginal irritation. Patient states that she was on antibiotics last week for dental infection. Patient states she thinks she is developing a yeast infection. Patient states over the past few days she's been having pain and burning during urination and burning while having sexual intercourse. Patient states last night she noticed lesions developing on her vaginal area. Patient states they're very tender to touch. Patient states she has a history of chlamydia. Patient denies any other history of STDs. Patient denies abdominal pain, nausea, vomiting, fevers, chills. Last Menstrual Period: 05/25/16 - Related Data Home Medications Medication Instructions Recorded Confirmed Citalopram Hydrobromide [CeleXA] 20 mg PO DAILY 06/16/16 06/16/16 Previous Rx's Medication Instructions Recorded Acyclovir [Zovirax] 400 mg PO TID 10 Days 06/16/16 Fluconazole [Diflucan] 150 mg PO DAILY PRN #2 tab 06/16/16 Nitrofurantoin Monohyd/M-Cryst 100 mg PO Q12HR 5 Days 06/16/16 [Macrobid] Allergies Allergy/AdvReac Type Severity Reaction Status Date / Time No Known Allergies Allergy Verified 06/16/16 21:58 Review of Systems ROS Statement: Those systems with pertinent positive or pertinent negative responses have been documented in the HPI. ROS Other: All systems not noted in ROS Statement are negative. Past Medical History Past Medical History: Asthma Additional Past Medical History / Comment(s): PT STATES OCCASIONAL SHARP PAIN IN CHEST WHEN SHE TAKES A BREATH - STATES HER FATHER HAS THE SAME PROBLEM., MISSED -DENIES ANY VAGINAL BLEEDING. History of Any Multi-Drug Resistant Organisms: None Reported Past Surgical History: Orthopedic Surgery Additional Past Surgical History / Comment(s): left wrist fx, d and c 2014 Past Anesthesia/Blood Transfusion Reactions: No Reported Reaction Additional Past Anesthesia/Blood Transfusion Reaction / Comment(s): STATES SHE WOKE UP CRYING. Past Psychological History: Anxiety, Bipolar, Depression Additional Psychological History / Comment(s): no meds x 2 years Smoking Status: Current every day smoker Past Alcohol Use History: Occasional Additional Past Alcohol Use History / Comment(s): STATES NO ALCOHOL FOR 2 MONTHS. Past Drug Use History: None Reported Additional Drug Use History / Comment(s): SMOKES MARIJUANA DAILY - Past Family History Mother Family Medical History: No Reported History General Exam - General Exam Comments Initial Comments: Sitting in exam room in no acute distress.. Limitations: no limitations General appearance: alert, in no apparent distress Head exam: Present: atraumatic, normocephalic, normal inspection Eye exam: Present: normal appearance ENT exam: Present: normal exam Neck exam: Present: normal inspection Respiratory exam: Absent: respiratory distress External exam: Present: lesions (Erythematous ulcerating lesions over the clitoris, labia majora and minora.) Speculum exam: Present: vaginal discharge (white, thick) Extremities exam: Present: normal inspection Back exam: Present: normal inspection Neurological exam: Present: alert, oriented X3, CN II-XII intact, normal gait Psychiatric exam: Present: normal affect, normal mood Skin exam: Present: warm, dry, intact, normal color. Absent: rash Course Vital Signs 06/16/16 06/16/16 21:40 23:08 Temperature 98.8 F Pulse Rate 100 85 Respiratory 18 16 Rate Blood Pressure 118/63 128/59 O2 Sat by Pulse 98 99 Oximetry Medical Decision Making - Medical Decision Making Patient is a 20-year-old female since emergency room for evaluation of vaginal irritation and pain and burning during urination. Physical exam significant for ulcerating lesions of her vaginal area, consistent with genital herpes. Other vaginal cultures pending. Urinalysis suspicious for urinary tract infection. Will place patient on antibiotics to treat for urinary tract infection and acyclovir for genital herpes. Will also place patient on Diflucan for yeast infection. Advised patient to follow-up with [facility] for reevaluation. Patient states she understands everything that was discussed with her. Return parameters discussed. Case discussed with Dr. Davenport. - Lab Data Lab Results 06/16/16 06/16/16 06/16/16 Range/Units 22:16 22:16 22:25 Urine Color Yellow Urine Appearance Cloudy H (Clear) Urine pH 6.5 (5.0-8.0) Ur Specific [place] 1.018 (1.001-1.035) Urine Protein Trace H (Negative) Urine Glucose (UA) Negative (Negative) Urine Ketones Negative (Negative) Urine Blood Trace H (Negative) Urine Nitrate Negative (Negative) Urine Bilirubin Negative (Negative) Urine Urobilinogen <2.0 (<2.0) mg/dL Ur Leukocyte Esterase Large H (Negative) Urine RBC 4 (0-5) /hpf Urine WBC 170 H (0-5) /hpf Ur Squamous Epith Cells 4 (0-4) /hpf Urine Bacteria Moderate H (None) /hpf Urine Mucus Rare H (None) /hpf Urine Yeast (Budding) Few H (None) /hpf Urine HCG, Qual Not Detected (Not Detectd) Trichomonas Ag (Rapid) Negative (Negative) Disposition Clinical Impression: Genital herpes, Yeast infection Disposition: HOME SELF-CARE Condition: Good Instructions: Genital Herpes Simplex (ED), Vulvovaginal Candidiasis (ED) Additional Instructions: Take medications as directed. Refrain from sexual intercourse until symptoms have subsided. Please follow-up with [facility] in 1-2 days for reevaluation. If any new symptom arises or symptoms worsen, return to ER as soon as possible. Prescriptions: Nitrofurantoin Monohyd/M-Cryst [Macrobid] 100 mg PO Q12HR 5 Days Acyclovir [Zovirax] 400 mg PO TID 10 Days Fluconazole [Diflucan] 150 mg PO DAILY PRN #2 tab PRN Reason: Vaginal Irritation Referrals: None,Stated [Primary Care Provider] - 1-2 days Time of Disposition: 22:37
[2016-06-16 22:54] LABS: Appearance,Urine Cloudy (Clear); Bacteria,Urine Moderate /hpf; Bilirubin,Urine Negative (Negative); Glucose,Urine (UA) Negative (Negative); Ketones,Urine Negative (Negative); Leukocyte Esterase,Urine Large (Negative); Mucus,Urine Rare /hpf; Nitrite,Urine Negative (Negative); PH, Urine 6.5 (5.0-8.0); Particle Count 5280; Protein,Urine Trace (Negative); RBC,Urine 4 /hpf (0-5); Specific Gravity,Urine 1.018 (1.001-1.035); Squamous Epithelial Cell,Urine 4 /hpf (0-4); UA Billing (MACRO vs. MICRO) MICRO; Urobilinogen,Urine <2.0 mg/dL (<2.0); WBC,Urine 170 /hpf (0-5)
[2016-06-16 23:08] VITALS: BP 128/59; PULSE 85; RESP 16
== END 2016-06-16 23:52 | disposition home or self-care (01) ==
LOC: EC 21:29
DX: A60.04 Herpesviral vulvovaginitis (principal); B37.49 Other urogenital candidiasis; N39.0 Urinary tract infection, site not specified; F32.9 Major depressive disorder, single episode, unspecified; F41.9 Anxiety disorder, unspecified; F17.200 Nicotine dependence, unspecified, uncomplicated; F12.90 Cannabis use, unspecified, uncomplicated; Z79.899 Other long term (current) drug therapy
CPT/HCPCS: 81001; 81025; 87070; 87086; 87205; 87491; 87591; 87808; 99283

== ENCOUNTER 2016-07-24 22:41 | Emergency (ER) | payer OTHER ==
[2016-07-24 22:53] VITALS: BP 130/74; PULSE 123; RESP 18; TEMP 98.2
[2016-07-24] MEDS ORDERED: ACET/COD 300 MG/30 MG STARTER PACK 6 TAB BTL PO STA (23:13)
--- NOTE | 2016-07-24 23:13 | ED ---
General Adult HPI - General Chief complaint: Dental/Oral Stated complaint: dental pain Time Seen by Provider: 07/24/16 23:04 Source: patient, RN notes reviewed Mode of arrival: ambulatory Limitations: no limitations - History of Present Illness Initial comments: Patient is a pleasant 20-year-old female presenting to the emergency Department with left upper dental pain. Onset of symptoms was yesterday. Symptoms have progressively worsened since that time. No swelling. No fever. Patient does have a history of previous dental problems however not in this area. No known injury. - Related Data Home Medications Medication Instructions Recorded Confirmed Citalopram Hydrobromide [CeleXA] 20 mg PO DAILY 06/16/16 06/16/16 Previous Rx's Medication Instructions Recorded Acyclovir [Zovirax] 400 mg PO TID 10 Days 06/16/16 Fluconazole [Diflucan] 150 mg PO DAILY PRN #2 tab 06/16/16 Nitrofurantoin Monohyd/M-Cryst 100 mg PO Q12HR 5 Days 06/16/16 [Macrobid] Acetaminophen-Codeine 300-30mg 1 each PO Q4H PRN #6 tablet 07/24/16 [Tylenol #3] Amoxicillin 500 mg PO Q8H #30 capsule 07/24/16 Allergies Allergy/AdvReac Type Severity Reaction Status Date / Time No Known Allergies Allergy Verified 06/16/16 21:58 Review of Systems ROS Statement: Those systems with pertinent positive or pertinent negative responses have been documented in the HPI. ROS Other: All systems not noted in ROS Statement are negative. Constitutional: Denies: fever Eyes: Denies: eye pain ENT: Reports: dental pain Respiratory: Denies: dyspnea Cardiovascular: Denies: chest pain Endocrine: Denies: fatigue Gastrointestinal: Denies: abdominal pain Genitourinary: Denies: dysuria Musculoskeletal: Denies: back pain Skin: Denies: rash Neurological: Denies: weakness Past Medical History Past Medical History: Asthma Additional Past Medical History / Comment(s): PT STATES OCCASIONAL SHARP PAIN IN CHEST WHEN SHE TAKES A BREATH - STATES HER FATHER HAS THE SAME PROBLEM., MISSED -DENIES ANY VAGINAL BLEEDING. History of Any Multi-Drug Resistant Organisms: None Reported Past Surgical History: Orthopedic Surgery Additional Past Surgical History / Comment(s): left wrist fx, d and c 2014 Past Anesthesia/Blood Transfusion Reactions: No Reported Reaction Additional Past Anesthesia/Blood Transfusion Reaction / Comment(s): STATES SHE WOKE UP CRYING. Past Psychological History: Anxiety, Bipolar, Depression Additional Psychological History / Comment(s): no meds x 2 years Smoking Status: Current every day smoker Past Alcohol Use History: Occasional Additional Past Alcohol Use History / Comment(s): STATES NO ALCOHOL FOR 2 MONTHS. Past Drug Use History: None Reported Additional Drug Use History / Comment(s): SMOKES MARIJUANA DAILY - Past Family History Mother Family Medical History: No Reported History General Exam Limitations: no limitations General appearance: alert, in no apparent distress Head exam: Present: atraumatic Eye exam: Present: normal appearance ENT exam: Present: normal oropharynx, other (Left upper molar with decay and evidence of fracture. No surrounding erythema or swelling.) Neck exam: Present: normal inspection Respiratory exam: Present: normal lung sounds bilaterally Cardiovascular Exam: Present: regular rate, normal rhythm GI/Abdominal exam: Present: soft. Absent: tenderness Extremities exam: Present: normal inspection Neurological exam: Present: alert Psychiatric exam: Present: normal affect, normal mood Skin exam: Absent: rash Course Vital Signs 07/24/16 22:49 Temperature 98.2 F Pulse Rate 123 H Respiratory 18 Rate Blood Pressure 130/74 O2 Sat by Pulse 99 Oximetry Procedures - Nerve Block Consent Obtained: verbal consent Time Out Performed: Yes Local Anesthetic Used: Lidocaine 1% Side: left Intraoral Nerve Block: supraperiosteal Complications: none Patient Tolerated Procedure: well Disposition Clinical Impression: Toothache Disposition: HOME SELF-CARE Condition: Stable Instructions: Toothache (ED), Dental Caries (ED) Additional Instructions: Please follow-up with a dentist as soon as possible. Urinalysis follow-up with your primary care physician. Return for swelling, fever, worsening symptoms or other concerns. Prescriptions: Acetaminophen-Codeine 300-30mg [Tylenol #3] 1 each PO Q4H PRN #6 tablet PRN Reason: Pain Amoxicillin 500 mg PO Q8H #30 capsule Referrals: Reynaldo Cisse MD [Primary Care Provider] - 1-2 days Time of Disposition: 23:13
== END 2016-07-24 23:21 | disposition home or self-care (01) ==
LOC: EC 22:41
DX: K08.89 Other specified disorders of teeth and supporting structures (principal); F32.9 Major depressive disorder, single episode, unspecified; F12.90 Cannabis use, unspecified, uncomplicated; F17.200 Nicotine dependence, unspecified, uncomplicated; Z79.899 Other long term (current) drug therapy
CPT/HCPCS: 64400; 99282

== ENCOUNTER 2016-09-05 20:58 | Emergency (ER) | payer OTHER ==
[2016-09-05 21:50] VITALS: BP 103/68; PULSE 66; RESP 18; TEMP 97.8
--- NOTE | 2016-09-05 22:03 | ED ---
ENT HPI - General Chief complaint: Dental/Oral Stated complaint: dental pain Time Seen by Provider: 09/05/16 21:58 Source: patient, RN notes reviewed Mode of arrival: ambulatory Limitations: no limitations - History of Present Illness Initial comments: 20-year-old female presents emergency Department chief complaint dental pain. Patient has bilateral upper dental pain. Patient states that she is scheduled for tooth extraction this Monday. She states that her dentist told her she had impacted wisdom teeth. Patient states that she cannot tolerate the pain. Patient denies any fevers or chills. Denies any difficulty swallowing. - Related Data Previous Rx's Medication Instructions Recorded Acetaminophen-Codeine 300-30mg 1 tab PO Q4H PRN #20 tablet 09/05/16 [Tylenol #3] Penicillin V Potassium [Pen Vee K] 500 mg PO QID #40 tab 09/05/16 Allergies Allergy/AdvReac Type Severity Reaction Status Date / Time No Known Allergies Allergy Verified 06/16/16 21:58 Review of Systems ROS Statement: Those systems with pertinent positive or pertinent negative responses have been documented in the HPI. ROS Other: All systems not noted in ROS Statement are negative. Past Medical History Past Medical History: Asthma Additional Past Medical History / Comment(s): PT STATES OCCASIONAL SHARP PAIN IN CHEST WHEN SHE TAKES A BREATH - STATES HER FATHER HAS THE SAME PROBLEM., MISSED -DENIES ANY VAGINAL BLEEDING. History of Any Multi-Drug Resistant Organisms: None Reported Past Surgical History: Orthopedic Surgery Additional Past Surgical History / Comment(s): left wrist fx, d and c 2014 Past Anesthesia/Blood Transfusion Reactions: No Reported Reaction Additional Past Anesthesia/Blood Transfusion Reaction / Comment(s): STATES SHE WOKE UP CRYING. Past Psychological History: Anxiety, Bipolar, Depression Additional Psychological History / Comment(s): no meds x 2 years Smoking Status: Current every day smoker Past Alcohol Use History: None Reported Additional Past Alcohol Use History / Comment(s): STATES NO ALCOHOL FOR 2 MONTHS. Past Drug Use History: None Reported Additional Drug Use History / Comment(s): SMOKES MARIJUANA DAILY - Past Family History Mother Family Medical History: No Reported History General Exam Limitations: no limitations General appearance: alert, in no apparent distress Head exam: Present: atraumatic, normocephalic, normal inspection Eye exam: Present: normal appearance, PERRL, EOMI. Absent: scleral icterus, conjunctival injection, periorbital swelling ENT exam: Present: mucous membranes moist, TM's normal bilaterally, normal external ear exam. Absent: normal exam, normal oropharynx (Impacted #1 and #16 no abscesses mild swelling dental caries noted) Neck exam: Present: normal inspection. Absent: tenderness, meningismus, lymphadenopathy Respiratory exam: Present: normal lung sounds bilaterally. Absent: respiratory distress, wheezes, rales, rhonchi, stridor Cardiovascular Exam: Present: regular rate, normal rhythm, normal heart sounds. Absent: systolic murmur, diastolic murmur, rubs, gallop, clicks Course Vital Signs 09/05/16 21:47 Temperature 97.8 F Pulse Rate 66 Respiratory 18 Rate Blood Pressure 103/68 O2 Sat by Pulse 98 Oximetry Medical Decision Making - Medical Decision Making 20-year-old female presented for dental pain. Patient we given pain medication at this time, antibiotics. She has an appointment on Monday for tooth extraction. Return parameters were discussed. Disposition Clinical Impression: Impacted molar, Toothache Disposition: HOME SELF-CARE Condition: Stable Instructions: Toothache (ED) Additional Instructions: Please return to the Emergency Department if symptoms worsen or any other concerns. Prescriptions: Acetaminophen-Codeine 300-30mg [Tylenol #3] 1 tab PO Q4H PRN #20 tablet PRN Reason: pain Penicillin V Potassium [Pen Vee K] 500 mg PO QID #40 tab Referrals: None,Stated [Primary Care Provider] - 1-2 days Time of Disposition: 22:03
[2016-09-05] MEDS ORDERED: ACET/COD 300 MG/30 MG STARTER PACK 6 TAB BTL PO STA (22:15)
== END 2016-09-05 22:22 | disposition home or self-care (01) ==
LOC: EC 20:58
DX: K01.1 Impacted teeth (principal); F17.200 Nicotine dependence, unspecified, uncomplicated
CPT/HCPCS: 99282

== ENCOUNTER → 2016-11-14 | Outpatient (CLI) | payer OTHER ==
--- NOTE | 2016-11-14 21:54 | US ---
EXAMINATION TYPE: US OB anatomy transabd DATE OF EXAM: 11/14/2016 COMPARISON: NONE HISTORY: 20-year-old female [id number] Encounter for screening of mother Unknown dates, anatomy sc an TECHNIQUE: Transabdominal (TA) FINDINGS: EXAM MEASUREMENTS: GESTATIONAL AGE / DATING Physician Established: Not yet established Dates by LMP: Unknown Dates by First Scan: No prior Dates by Current Scan for: (19 weeks/5 days) EDC: 04/05/2017 SURVEY IUP: Single PLACENTA: Anterior PREVIA: No previa HARLAN: 14.8 cm Normal CERVICAL LENGTH (transabdominal: norm > 3.0cm): 3.2 cm BIOMETRY PRESENTATION: Breech BPD: 4.5 cm 19 weeks / 3 days HC: 17.5 cm 20 weeks / 0 days AC: 14.4 cm 19 weeks / 5 days FL: 3.2 cm 19 weeks / 6 days ESTIMATED WEIGHT IN GRAMS: 313 grams ESTIMATED WEIGHT IN LBS/OZS: 0 lbs. 11 oz. HC/AC: 1.21 Normal FL/AC: 22 Normal HEART RATE: 163 bpm RHYTHM: Normal ANATOMY SEEN (within normal limits): Lateral Vent (< 1 cm) 0.7 cm Cisterna Magna (< 1.1 cm) 0.3 cm Nuchal Fold (< 0.6 cm) 0.3 cm Cerebellum (varies with age) 2.1 cm Choroid Plexus (bilateral) Midline Falx Four Chamber Heart Outflow tract: RVOT Stomach Situs Nose / Lips Diaphragm Kidneys (bilateral) Bladder Cord Insert Three Vessel Cord Arms (bilateral) Legs (bilateral) ANATOMY NOT SEEN: Cavus Septi Pellucidi Outflow tract: LVOT Longitudinal Spine Transverse Spine ORACLE EBS ARCHITECT NOTES: Single, viable IUP/ Anatomy visualized appeared wnl/ Fetus spine down, pt coming for OB call back NOV 28 at 3:40 for spine images IMPRESSION: 1. Single live intrauterine with average gestational age of 19 weeks 5 days by current ultr asound biometry. 2. A few of the structures on the survey were suboptimally visualized as above. The patient is scheduled to return for a rescan of missed anatomy. The remaining structures appear normal.
== END | disposition home or self-care (01) ==
LOC: RADUSWWP 16:03
PROVIDERS: ATTEND Obstetrics & Gynecology
DX: Z36 Encounter for antenatal screening of mother (principal); Z3A.19 19 weeks gestation of pregnancy
CPT/HCPCS: 76811

== ENCOUNTER → 2016-11-28 | Outpatient (CLI) | payer OTHER ==
--- NOTE | 2016-11-29 06:54 | US ---
EXAMINATION TYPE: US OB Call Back DATE OF EXAM: 11/28/2016 COMPARISON: OB ultrasound November 14, 2016 CLINICAL HISTORY: CALL BACK. GESTATIONAL AGE / DATING Dates by Initial Survey Scan: (21 weeks/2 days) EDC: 04/05/2017 HEART RATE: 153 bpm RHYTHM: Normal ANATOMY SEEN (second anatomic survey look): Cavus Septi Pellucidi: Outflow tracts:? LVOT Longitudinal Spine: Transverse Spine: Secondary callback show successful two-view visualization of spine, LV outflow tract, and cavum septu m pellucidum during real-time scanning and still images saved. IMPRESSION: As above
== END | disposition home or self-care (01) ==
LOC: RADUSWWP 16:35
PROVIDERS: ATTEND Obstetrics & Gynecology
DX: Z34.82 Encounter for supervision of other normal pregnancy, second trimester (principal); Z3A.21 21 weeks gestation of pregnancy

== ENCOUNTER 2017-02-24 02:15 | Outpatient (CLI) | payer OTHER ==
[2017-02-24 03:41] LABS: Appearance,Urine Clear (Clear); Bacteria,Urine Rare /hpf; Bilirubin,Urine Negative (Negative); Glucose,Urine (UA) Negative (Negative); Ketones,Urine Negative (Negative); Leukocyte Esterase,Urine Large (Negative); Mucus,Urine Rare /hpf; Nitrite,Urine Negative (Negative); PH, Urine 6.5 (5.0-8.0); Particle Count 1510; Protein,Urine Negative (Negative); RBC,Urine <1 /hpf (0-5); Specific Gravity,Urine 1.011 (1.001-1.035); Squamous Epithelial Cell,Urine 2 /hpf (0-4); UA Billing (MACRO vs. MICRO) MICRO; Urobilinogen,Urine <2.0 mg/dL (<2.0); WBC,Urine 13 /hpf (0-5)
[2017-02-24 04:38] VITALS: BP 122/57; PULSE 95; RESP 16; TEMP 98.5
--- NOTE | 2017-02-24 04:41 | US ---
EXAM: US Uterus, Limited CLINICAL HISTORY: Placenta location TECHNIQUE: Real-time ultrasound of the maternal uterus (limited) with image documentation. COMPARISON: 11/28/2016 FINDINGS: Heart rate: Heart rate of 131 beats per minute. Placenta: The placenta is anteriorly located. No abruption. IMPRESSION: As above.
--- NOTE | 2017-02-24 12:21 | P.MSEPDOC ---
Presenting Problems - Arrival Data Date of Arrival on Unit: 02/24/17 Time of Arrival on Unit: 02:20 Mode of Transport: Wheelchair - Complaint OB-Reason for Admission/Chief Complaint: Possible Onset of Labor Comment: Pt states she has had cramping all day yesterday and it has gotten more painful all day. Medical History - Information : 2 Para: 1 Term: 0 : 1 Abortions: Spontaneous or Elective: 0 Number of Living Children: 1 - Gestational Age Gestational Age by MALIK (wks/days): 35 Weeks and 1 Days - History Complications: No Care, Prior , Smoker Sexually Transmitted Diseases: HSV Comment: Pt was seen by Dr. Walker up until 20 weeks gestation. Pt states she has not had any care since. Pt has hx of type 1&2 HSV. Review of Systems - Review of Systems Constitutional: No problems Breast: No problems ENT: No problems Cardiovascular: No problems Respiratory: No problems Gastrointestinal: No problems Genitourinary: No problems Musculoskeletal: No problems Neurological: No problems Skin: No problems Vital Signs - Temperature Temperature: 98.5 F Temperature Source: Oral - Pulse Pulse Oximetery Pulse Rate: 95 Pulse Assessment Method: Automatic Cuff - Respirations Respiratory Rate: 16 Oxygen Delivery Method: Room Air - Blood Pressure Right Arm Blood Pressure: 122/57 Blood Pressure Mean: 78 Blood Pressure Source: Automatic Cuff Medical Screen Scoring (Pre) - Cervical Exam Dilation: 0 cm = 0 Effacement: Exam Deferred Membranes: Intact - Uterine Contractions Frequency: N/A Duration: N/A Intensity: N/A - Maternal Vital Signs Maternal Temperature: N/A Maternal Blood Pressure: N/A Signs of Preeclampsia: N/A Maternal Respirations: N/A - Pain Assessment Pain Location and Character: Abdomen Pain Scale Used: Numeric (1 - 10) Pain Intensity: 4 Pain Management Goal: 0 Pain Description: *Acute, Cramping Pain Radiation Location: lower back Pain Frequency: Intermittent Pain Duration: 8 Pain Duration Units: Hours Pain Behavior: Facial Grimacing Effects of Pain: none - Maternal Trauma Maternal Trauma: N/A - Assessment Baseline FHR: 130 Heart Rate - NICHD Category: Category I (Normal) = 0 NST: Reactive Position: N/A Station: N/A - Total Score Total Score (Pre): 0 - Level of Risk Level of Risk: Low (0-5) Physician Notification (Pre) - Physician Notified Physician Notified Date: 02/24/17 Physician Notified Time: 03:01 Physician/Practitioner Notifed:: Dr. Landis Spoke With: Dr. Landis New Order Received: Yes - Notification Comment Comment: Orders to order U/S to assess where placenta is located. If placenta is anterior, check pts cervix for dilation. Send UA. If pt is not dilated discharge orders given. Disposition - Disposition OB Disposition: Discharge to home Discharge Date: 02/24/17 Discharge Time: 04:17 I agree with the RN Medical Screening Exam: Yes Risk & Benefit of care provided described in d/c instruction: Yes Diagnosis: FALSE LABOR, UNSPECIFIED
== END 2017-02-24 04:17 | disposition home or self-care (01) ==
LOC: FBPOP 02:15
PROVIDERS: ATTEND Obstetrics & Gynecology Obstetrics
DX: O47.9 False labor, unspecified (principal); Z3A.35 35 weeks gestation of pregnancy
CPT/HCPCS: 59025; 81001; 76815; G0463; 99213

== ENCOUNTER 2017-04-25 22:09 | Emergency (ER) | payer OTHER ==
[2017-04-25] MEDS ORDERED: IBUPROFEN 600 MG TAB PO STA (23:10)
[2017-04-25] MEDS ORDERED: ACETAMINOPHEN TAB 325 MG TAB PO STA (23:10)
[2017-04-25] MEDS ORDERED: IPRATROPIUM-ALBUTEROL 3 ML NEB INHALATION STA (23:10)
[2017-04-25 23:31] LABS: Appearance,Urine Cloudy (Clear); Bacteria,Urine Occasional /hpf; Bilirubin,Urine Negative (Negative); Blood,Urine Moderate (Negative); Budding Yeast,Urine Occasional /hpf; Color,Urine Yellow; Glucose,Urine (UA) Negative (Negative); Ketones,Urine Negative (Negative); Leukocyte Esterase,Urine Large (Negative); Mucus,Urine Occasional /hpf; Nitrite,Urine Negative (Negative); Protein,Urine Negative (Negative); RBC,Urine 2 /hpf (0-5); Specific Gravity,Urine 1.012 (1.001-1.035); Urobilinogen,Urine <2.0 mg/dL (<2.0); WBC,Urine 117 /hpf (0-5)
--- NOTE | 2017-04-25 23:38 | XR ---
EXAMINATION TYPE: XR chest 2V DATE OF EXAM: 04/25/2017 COMPARISON: 10/13/2014 HISTORY: Pain TECHNIQUE: Frontal and lateral views of the chest are obtained. FINDINGS: Heart and mediastinum are normal. Lungs are clear. Diaphragm is normal. Bony thorax is int act. IMPRESSION: Normal chest. No change.
[2017-04-25] MEDS ORDERED: SODIUM CHLORIDE 0.9% 500 ML IV STA (23:50)
[2017-04-25] MEDS ORDERED: SODIUM CHLORIDE 0.9% 1,000 ML IV STA (23:50)
[2017-04-26 00:12] LABS: Anisocytosis Slight; Basophils # (A) 0.1 k/uL (0-0.2); Basophils % (A) 1 %; Eosinophils # (A) 0.2 k/uL (0-0.7); Eosinophils % (A) 2 %; HCT 38.2 % (34.0-46.0); HGB 12.3 gm/dL (11.4-16.0); Lymphocytes # (A) 1.5 k/uL (1.0-4.8); Lymphocytes % (A) 15 %; MCHC 32.1 g/dL (31.0-37.0); MCV 74.8 fL (80.0-100.0); Mean Platelet Volume 7.5; Microcytosis Moderate; Monocytes # (A) 0.3 k/uL (0-1.0); Monocytes % (A) 3 %; Neutrophils % (A) 79 %; Platelet Count 277 k/uL (150-450); RBC 5.11 m/uL (3.80-5.40); RDW 18.6 % (11.5-15.5); WBC 10.2 k/uL (3.8-10.6)
[2017-04-26 00:23] LABS: ALT 39 U/L (9-52); AST 16 U/L (14-36); Albumin 3.8 g/dL (3.5-5.0); Alkaline Phosphatase 112 U/L (38-126); Anion Gap 13 mmol/L; Blood Urea Nitrogen 10 mg/dL (7-17); Calcium 9.3 mg/dL (8.4-10.2); Carbon Dioxide 21 mmol/L (22-30); Chloride 104 mmol/L (98-107); Glucose 106 mg/dL (74-99); Sodium 138 mmol/L (137-145); Total Bilirubin 0.4 mg/dL (0.2-1.3); Total Protein 6.9 g/dL (6.3-8.2)
--- NOTE | 2017-04-26 00:58 | ED ---
General Adult HPI - General Chief complaint: ENT Stated complaint: anxiety Time Seen by Provider: 04/25/17 22:49 Source: family, EMS Mode of arrival: EMS Limitations: no limitations - History of Present Illness Initial comments: 21-year-old female patient presents to the emergency department today with complaints of headache, body aches, and cough. Patient states that she has been feeling poorly over the last 24 hours. States that she did take Motrin earlier for headache however it did not help. Patient states that she is coughing and feels short of breath. She states that she does have some nasal congestion. Patient is 2 weeks post after a delivery. Patient states that her incision site is healing well. She denies any drainage from the incision site. States that she is having some vaginal bleeding and right lower quadrant abdominal cramping. She states that she has chronic low back pain and this has not changed. She denies any rash, nausea, or vomiting with this. She denies any hematuria, dysuria, urinary urgency, or urinary frequency. Patient denies any recent chest pain, diarrhea, constipation, back pain, numbness, tingling, dizziness, weakness, headache, visual changes, or any other complaints. - Related Data Home Medications Medication Instructions Recorded Confirmed Docusate [Colace] 100 mg PO DAILY 04/25/17 04/25/17 HYDROcodone/APAP 5-325MG [[place] 1 tab PO Q4HR PRN 04/25/17 04/25/17 5-325] Ibuprofen [Motrin] 600 mg PO Q6H PRN 04/25/17 04/25/17 Previous Rx's Medication Instructions Recorded Albuterol Sulfate [Proair Hfa] 1 - 2 puff INHALATION Q6HR PRN #1 04/26/17 inhaler Sulfamethoxazole/Trimethoprim 1 each PO BID #20 tablet 04/26/17 [Bactrim DS 800-160 mg] Allergies Allergy/AdvReac Type Severity Reaction Status Date / Time No Known Allergies Allergy Verified 04/25/17 23:02 Review of Systems ROS Statement: Those systems with pertinent positive or pertinent negative responses have been documented in the HPI. ROS Other: All systems not noted in ROS Statement are negative. Past Medical History Past Medical History: Asthma Additional Past Medical History / Comment(s): PT STATES OCCASIONAL SHARP PAIN IN CHEST WHEN SHE TAKES A BREATH - STATES HER FATHER HAS THE SAME PROBLEM., MISSED -DENIES ANY VAGINAL BLEEDING. History of Any Multi-Drug Resistant Organisms: None Reported Past Surgical History: Section, Orthopedic Surgery Additional Past Surgical History / Comment(s): left wrist fx, d and c 2014 Past Anesthesia/Blood Transfusion Reactions: No Reported Reaction Additional Past Anesthesia/Blood Transfusion Reaction / Comment(s): STATES SHE WOKE UP CRYING. Past Psychological History: Anxiety, Bipolar, Depression Smoking Status: Current every day smoker Past Alcohol Use History: Occasional Past Drug Use History: None Reported - Past Family History Mother Family Medical History: No Reported History General Exam Limitations: no limitations General appearance: alert, in no apparent distress, other (This is a well- developed, obese female patient in no acute distress. Vital signs upon presentation were temperature 101.5F, pulse 124, respirations 18, blood pressure 113/78, pulse ox 95% on room air.) Eye exam: Present: normal appearance, PERRL, EOMI. Absent: scleral icterus, conjunctival injection, periorbital swelling ENT exam: Present: normal exam, normal oropharynx (Pharyngeal erythema), mucous membranes moist, TM's normal bilaterally Neck exam: Present: normal inspection. Absent: tenderness, meningismus, lymphadenopathy Respiratory exam: Present: wheezes (Expiratory wheezing noted throughout all posterior lung tucker.). Absent: normal lung sounds bilaterally, respiratory distress, rales, rhonchi, stridor, chest wall tenderness, accessory muscle use Cardiovascular Exam: Present: normal rhythm, tachycardia, normal heart sounds. Absent: systolic murmur, diastolic murmur, rubs, gallop, clicks GI/Abdominal exam: Present: soft, tenderness (Right lower quadrant tenderness), normal bowel sounds. Absent: distended, guarding, rebound, rigid Back exam: Present: normal inspection. Absent: CVA tenderness (R), CVA tenderness (L) Neurological exam: Present: alert, oriented X3, CN II-XII intact Psychiatric exam: Present: normal affect, normal mood Skin exam: Present: warm, dry, intact, normal color. Absent: rash Course Vital Signs 04/25/17 04/25/17 04/25/17 22:20 23:46 23:54 Temperature 101.5 F H Pulse Rate 124 H 88 96 Respiratory 18 Rate Blood Pressure 113/78 O2 Sat by Pulse 95 Oximetry 01/03/18 00:57 Temperature 97.9 F Pulse Rate 79 Respiratory 18 Rate Blood Pressure 117/70 O2 Sat by Pulse 97 Oximetry Medical Decision Making - Medical Decision Making 21-year-old female patient presented to the emergency department today for evaluation of fever, headache, body aches, and cough. Physical examination did reveal pharyngeal erythema. Diffuse expiratory wheezing. incision site is healing well without any drainage or surrounding erythema. Patient was complaining of some right lower quadrant cramping, she did have right lower quadrant tenderness with this. Patient did have elevated temperature 101.5. She did have some upper respiratory symptoms however there was minor concern for postoperative infection as she was complaining of lower abdominal pain. We did order an ultrasound of the abdomen and pelvis transvaginally however patient refused undergo this testing. I did discuss with her my concerns for postop infection however she does not feel concerned regarding this. Labs were reviewed and were overall unremarkable. Lactic acid was 0.7. Urinalysis did show cloudy appearance with moderate blood, large leukocyte esterase, 117 white blood cells, occasional bacteria, occasional mucous, and occasional budding yeast. Influenza testing was negative. She does have a urinary tract infection and will be started on Bactrim. I instructed her to follow up with her MOLD REPAIRER as soon as possible for further evaluation. She will be given a Pro Air inhaler for the wheezing. She is counseled regarding smoking cessation. She is instructed to return here immediately for any new, worsening, or concerning symptoms. I did educate her extensively regarding return parameters. She verbalizes understanding and agrees with this plan. - Lab Data Result diagrams: 04/26/17 00:01 04/26/17 00:01 Lab Results 04/25/17 04/25/17 04/26/17 Range/Units 23:15 23:15 00:01 WBC 10.2 (3.8-10.6) k/uL RBC 5.11 (3.80-5.40) m/uL Hgb 12.3 (11.4-16.0) gm/dL Hct 38.2 (34.0-46.0) % MCV 74.8 L (80.0-100.0) fL MCH 24.0 L (25.0-35.0) pg MCHC 32.1 (31.0-37.0) g/dL RDW 18.6 H (11.5-15.5) % Plt Count 277 (150-450) k/uL Neutrophils % 79 % Lymphocytes % 15 % Monocytes % 3 % Eosinophils % 2 % Basophils % 1 % Neutrophils # 8.0 H (1.3-7.7) k/uL Lymphocytes # 1.5 (1.0-4.8) k/uL Monocytes # 0.3 (0-1.0) k/uL Eosinophils # 0.2 (0-0.7) k/uL Basophils # 0.1 (0-0.2) k/uL Anisocytosis Slight Microcytosis Moderate Sodium (137-145) mmol/L Potassium (3.5-5.1) mmol/L Chloride (98-107) mmol/L Carbon Dioxide (22-30) mmol/L Anion Gap mmol/L BUN (7-17) mg/dL Creatinine (0.52-1.04) mg/dL Est GFR (MDRD) Af Amer (>60 ml/min/1.73 sqM) Est GFR (MDRD) Non-Af (>60 ml/min/1.73 sqM) Glucose (74-99) mg/dL Plasma Lactic Acid [place] (0.7-2.0) mmol/L Calcium (8.4-10.2) mg/dL Total Bilirubin (0.2-1.3) mg/dL AST (14-36) U/L ALT (9-52) U/L Alkaline Phosphatase (38-126) U/L Total Protein (6.3-8.2) g/dL Albumin (3.5-5.0) g/dL Urine Color Yellow Urine Appearance Cloudy H (Clear) Urine pH 6.0 (5.0-8.0) Ur Specific [place] 1.012 (1.001-1.035) Urine Protein Negative (Negative) Urine Glucose (UA) Negative (Negative) Urine Ketones Negative (Negative) Urine Blood Moderate H (Negative) Urine Nitrite Negative (Negative) Urine Bilirubin Negative (Negative) Urine Urobilinogen <2.0 (<2.0) mg/dL Ur Leukocyte Esterase Large H (Negative) Urine RBC 2 (0-5) /hpf Urine WBC 117 H (0-5) /hpf Urine Bacteria Occasional H (None) /hpf Urine Mucus Occasional H (None) /hpf Urine Yeast (Budding) Occasional H (None) /hpf Influenza Type A RNA Not Detected (Not Detectd) Influenza Type B (PCR) Not Detected (Not Detectd) 04/26/17 04/26/17 Range/Units 00:01 00:01 WBC (3.8-10.6) k/uL RBC (3.80-5.40) m/uL Hgb (11.4-16.0) gm/dL Hct (34.0-46.0) % MCV (80.0-100.0) fL MCH (25.0-35.0) pg MCHC (31.0-37.0) g/dL RDW (11.5-15.5) % Plt Count (150-450) k/uL Neutrophils % % Lymphocytes % % Monocytes % % Eosinophils % % Basophils % % Neutrophils # (1.3-7.7) k/uL Lymphocytes # (1.0-4.8) k/uL Monocytes # (0-1.0) k/uL Eosinophils # (0-0.7) k/uL Basophils # (0-0.2) k/uL Anisocytosis Microcytosis Sodium 138 (137-145) mmol/L Potassium 4.0 (3.5-5.1) mmol/L Chloride 104 (98-107) mmol/L Carbon Dioxide 21 L (22-30) mmol/L Anion Gap 13 mmol/L BUN 10 (7-17) mg/dL Creatinine 0.80 (0.52-1.04) mg/dL Est GFR (MDRD) Af Amer >60 (>60 ml/min/1.73 sqM) Est GFR (MDRD) Non-Af >60 (>60 ml/min/1.73 sqM) Glucose 106 H (74-99) mg/dL Plasma Lactic Acid [place] 0.7 (0.7-2.0) mmol/L Calcium 9.3 (8.4-10.2) mg/dL Total Bilirubin 0.4 (0.2-1.3) mg/dL AST 16 (14-36) U/L ALT 39 (9-52) U/L Alkaline Phosphatase 112 (38-126) U/L Total Protein 6.9 (6.3-8.2) g/dL Albumin 3.8 (3.5-5.0) g/dL Urine Color Urine Appearance (Clear) Urine pH (5.0-8.0) Ur Specific [place] (1.001-1.035) Urine Protein (Negative) Urine Glucose (UA) (Negative) Urine Ketones (Negative) Urine Blood (Negative) Urine Nitrite (Negative) Urine Bilirubin (Negative) Urine Urobilinogen (<2.0) mg/dL Ur Leukocyte Esterase (Negative) Urine RBC (0-5) /hpf Urine WBC (0-5) /hpf Urine Bacteria (None) /hpf Urine Mucus (None) /hpf Urine Yeast (Budding) (None) /hpf Influenza Type A RNA (Not Detectd) Influenza Type B (PCR) (Not Detectd) - Radiology Data Radiology results: report reviewed, image reviewed Two-view x-ray of the chest shows a heart and mediastinum are normal. Lungs are clear. Diaphragm is normal. Bony thorax is intact. Impression by Dr. Lawson shows normal chest with no change. Disposition Clinical Impression: Urinary tract infection, Upper respiratory infection, Abdominal pain Disposition: HOME SELF-CARE Condition: Good Instructions: Urinary Tract Infection in Women (ED), Upper Respiratory Infection (ED), Abdominal Pain (ED) Additional Instructions: Increase fluids. Take prescriptions as directed. Complete antibiotic prescription in full. Take [id number] nasal decongestants for symptom relief. Follow-up with your primary care physician for recheck in 1-2 days. Follow-up with your MOLD REPAIRER as soon as possible. Return here immediately for any new, worsening, or concerning symptoms. Prescriptions: Albuterol Sulfate [Proair Hfa] 1 - 2 puff INHALATION Q6HR PRN #1 inhaler PRN Reason: Shortness Of Breath Sulfamethoxazole/Trimethoprim [Bactrim DS 800-160 mg] 1 each PO BID #20 tablet Referrals: None,Stated [Primary Care Provider] - 1-2 days Time of Disposition: 00:57
[2017-04-26] MEDS ORDERED: SULFAMETHOX-TMP 800-160MG 1 EACH TAB PO STA (01:02)
[2017-04-26 23:15] VITALS: BP 117/70; PULSE 79; RESP 18; TEMP 97.9
== END 2017-04-26 01:07 | disposition home or self-care (01) ==
LOC: EC 22:09
DX: J06.9 Acute upper respiratory infection, unspecified (principal); N39.0 Urinary tract infection, site not specified; F41.9 Anxiety disorder, unspecified; F17.200 Nicotine dependence, unspecified, uncomplicated; Z79.899 Other long term (current) drug therapy
CPT/HCPCS: 36415; 71046; 80053; 81001; 83605; 85025; 87040; 87077; 87086; 87186; 87502; 94640; 96360; 99284

== ENCOUNTER 2017-05-02 08:04 | Emergency (ER) | payer OTHER ==
[2017-05-02] MEDS ORDERED: IBUPROFEN 600 MG STARTER PACK 4 TAB BTL PO STA (08:15)
[2017-05-02] MEDS ORDERED: ACETAMINOPHEN TAB 500 MG TAB PO STA (08:15)
[2017-05-02] MEDS ORDERED: LEVOFLOXACIN 750MG-D5W PMX 750 MG in DEXTROSE/WATER 1 150ML.BAG IVPB STA (08:25)
[2017-05-02] MEDS ORDERED: diphenhydrAMINE 50 MG/ML 1 ML VIAL IVP STA (08:26)
[2017-05-02] MEDS ORDERED: IPRATROPIUM-ALBUTEROL 3 ML NEB INHALATION STA (08:26)
[2017-05-02] MEDS ORDERED: SODIUM CHLORIDE 0.9% 1,000 ML IV SCH (08:30)
[2017-05-02] MEDS: SODIUM CHLORIDE 0.9% 500 ML IV SCH (08:42)
--- NOTE | 2017-05-02 08:45 | ED ---
Skin/Abscess/FB HPI - General Chief complaint: Skin/Abscess/Foreign Body Stated complaint: allergic reaction Time Seen by Provider: 05/02/17 08:14 Source: EMS, RN notes reviewed, old records reviewed Mode of arrival: EMS Limitations: no limitations - History of Present Illness Initial comments: this patient is a 21-year-old female chief complaint of hive reaction last night into today. Patient reports that she has had a fever, vomiting, and body aches. She reports a cough, and also some right-sided back pain. Patient was evaluated approximately one week ago and was diagnosed with urinary tract infection, and had the similar symptoms that she does today. Patient reports that she did not fill her antibiotic prescription. Patient states that she also gave approximately 3 weeks ago. Patient reports that her delivery was by , she denies any abdominal tenderness to the site at this time. She reports that she feels very nauseous and has vomited. She does not know exactly what could've caused the hives. Is unlikely that was any antibiotic related to this, she is not filled her prescriptions. She arrives with a fever 104.1. - Related Data Previous Rx's Medication Instructions Recorded Ibuprofen [Motrin] 600 mg PO Q8HR PRN #20 tab 05/02/17 Levofloxacin [Levaquin] 750 mg PO DAILY #10 tab 05/02/17 diphenhydrAMINE [Benadryl] 25 mg PO QID PRN #20 capsule 05/02/17 Allergies Allergy/AdvReac Type Severity Reaction Status Date / Time No Known Allergies Allergy Verified 05/02/17 08:21 Review of Systems ROS Statement: Those systems with pertinent positive or pertinent negative responses have been documented in the HPI. ROS Other: All systems not noted in ROS Statement are negative. Past Medical History Past Medical History: Asthma Additional Past Medical History / Comment(s): PT STATES OCCASIONAL SHARP PAIN IN CHEST WHEN SHE TAKES A BREATH - STATES HER FATHER HAS THE SAME PROBLEM., MISSED -DENIES ANY VAGINAL BLEEDING. History of Any Multi-Drug Resistant Organisms: None Reported Past Surgical History: Section, Orthopedic Surgery Additional Past Surgical History / Comment(s): left wrist fx, d and c 2014 Past Anesthesia/Blood Transfusion Reactions: No Reported Reaction Additional Past Anesthesia/Blood Transfusion Reaction / Comment(s): STATES SHE WOKE UP CRYING. Past Psychological History: Anxiety, Bipolar, Depression Smoking Status: Current every day smoker Past Alcohol Use History: Occasional Past Drug Use History: None Reported - Past Family History Mother Family Medical History: No Reported History General Exam - General Exam Comments Initial Comments: This is a 21-year-old female. Patient appears very lethargic and fatigued. Patient is covered in hives. Vital signs are temperature 104.1, pulse 123, respiratory rate 20. Plus pressure is 90/53. Pulse ox 95% on room air. Limitations: no limitations General appearance: alert, in no apparent distress Head exam: Present: atraumatic, normocephalic, normal inspection Eye exam: Present: normal appearance, PERRL, EOMI. Absent: scleral icterus, conjunctival injection, periorbital swelling ENT exam: Present: normal exam, normal oropharynx (pharyngeal erythema), mucous membranes moist Neck exam: Present: normal inspection, full ROM, lymphadenopathy. Absent: tenderness, meningismus Respiratory exam: Present: wheezes. Absent: normal lung sounds bilaterally, respiratory distress, rales, rhonchi, stridor Cardiovascular Exam: Present: normal rhythm, tachycardia, normal heart sounds. Absent: regular rate, systolic murmur, diastolic murmur, rubs, gallop, clicks GI/Abdominal exam: Present: soft, normal bowel sounds, other (well-healing surgical site of section.). Absent: distended, tenderness, guarding , rebound, rigid Extremities exam: Present: normal inspection, full ROM, normal capillary refill. Absent: tenderness, pedal edema, joint swelling, calf tenderness Back exam: Present: normal inspection, CVA tenderness (R) Neurological exam: Present: alert, oriented X3, CN II-XII intact Psychiatric exam: Present: normal affect, normal mood Skin exam: Present: warm, dry, intact, normal color, urticaria (patient has difuse urticaria over abdomen, chest, neck, and arms.). Absent: rash Course Vital Signs 05/02/17 05/02/17 05/02/17 08:06 08:10 08:56 Temperature 104.1 F H Pulse Rate 123 H 108 H Respiratory 20 20 Rate Blood Pressure 90/53 93/60 112/60 O2 Sat by Pulse 95 96 Oximetry 05/02/17 05/02/17 05/02/17 09:10 09:20 09:34 Temperature 100.8 F H Pulse Rate 122 H 112 H Respiratory Rate Blood Pressure O2 Sat by Pulse Oximetry 05/02/17 05/02/17 10:16 11:36 Temperature 97.5 F L Pulse Rate 86 75 Respiratory 16 Rate Blood Pressure 97/52 105/60 O2 Sat by Pulse 98 Oximetry - Reevaluation(s) Reevaluation #1: 05/02/17 08:43 patient meet sepsis criteria, with 3 SIRS criteria, and documents was infection from her previous urine culture being positive for E. coli. 05/02/17 08:43 Medical Decision Making - Medical Decision Making patient is a 21-year-old female presents with fever 104, tachycardia, and low blood pressure, with history of recent urinary tract infection. She stated did not take her antibiotics. Patient did have a baby proximal bili 3 weeks ago. She arrives today due to diffuse urticaria over her entire body. She reports it started last night. Patient reports she does not have any money for Motrin Tylenol or to get her prescriptions filled. Patient was given 3 L of fluids, and EKG, and all of her lab work was obtained. White count was within normal limits. She did have some diffuse wheezing as well. Given a DuoNeb treatment, and this help resolve this. Discussed the importance of smoking cessation. Patient's previous urine culture was positive for E. coli, was not susceptible to Bactrim, patient's original prescription, however she never took it. Patient was given IV Levaquin. I discussed that I would like to admit the patient. Discussed that she meet sepsis criteria from presentation. She was also given same as her, Benadryl due to the hive-like reaction. That seemed to resolve shortly afterwards. Patient case with Dr. Chase. He also examined the patient. Patient is very adamant about wanting to go home to her baby. I discussed that this could be a life or situation due to her vital signs, and documented infection within the urine. Patient still reports that she had to leave. Patient will be signing out AMA. Patient will be given a prescription for Levaquin was as previously susceptibility. Discussed the importance of following up, discussed the importance of returning if her symptoms worsen. - Lab Data Result diagrams: 05/02/17 08:48 05/02/17 08:48 Lab Results 05/02/17 05/02/17 05/02/17 Range/Units 08:48 08:48 08:48 WBC 9.3 (3.8-10.6) k/uL RBC 5.33 (3.80-5.40) m/uL Hgb 12.8 (11.4-16.0) gm/dL Hct 39.4 (34.0-46.0) % MCV 73.9 L (80.0-100.0) fL MCH 24.0 L (25.0-35.0) pg MCHC 32.4 (31.0-37.0) g/dL RDW 16.1 H (11.5-15.5) % Plt Count 277 (150-450) k/uL Neutrophils % 79 % Lymphocytes % 14 % Monocytes % 5 % Eosinophils % 0 % Basophils % 0 % Neutrophils # 7.4 (1.3-7.7) k/uL Lymphocytes # 1.4 (1.0-4.8) k/uL Monocytes # 0.4 (0-1.0) k/uL Eosinophils # 0.0 (0-0.7) k/uL Basophils # 0.0 (0-0.2) k/uL Anisocytosis Slight Microcytosis Slight PT (9.0-12.0) sec INR (<1.2) APTT (22.0-30.0) sec Sodium 137 (137-145) mmol/L Potassium 3.8 (3.5-5.1) mmol/L Chloride 101 (98-107) mmol/L Carbon Dioxide 24 (22-30) mmol/L Anion Gap 12 mmol/L BUN 8 (7-17) mg/dL Creatinine 1.00 (0.52-1.04) mg/dL Est GFR (MDRD) Af Amer >60 (>60 ml/min/1.73 sqM) Est GFR (MDRD) Non-Af >60 (>60 ml/min/1.73 sqM) Glucose 117 H (74-99) mg/dL Plasma Lactic Acid Bradley (0.7-2.0) mmol/L Calcium 8.9 (8.4-10.2) mg/dL Total Bilirubin 0.9 (0.2-1.3) mg/dL AST 15 (14-36) U/L ALT 24 (9-52) U/L Alkaline Phosphatase 95 (38-126) U/L Total Protein 6.4 (6.3-8.2) g/dL Albumin 3.4 L (3.5-5.0) g/dL Urine Color Urine Appearance (Clear) Urine pH (5.0-8.0) Ur Specific [place] (1.001-1.035) Urine Protein (Negative) Urine Glucose (UA) (Negative) Urine Ketones (Negative) Urine Blood (Negative) Urine Nitrite (Negative) Urine Bilirubin (Negative) Urine Urobilinogen (<2.0) mg/dL Ur Leukocyte Esterase (Negative) Urine RBC (0-5) /hpf Urine WBC (0-5) /hpf Urine WBC Clumps (None) /hpf Ur Squamous Epith Cells (0-4) /hpf Urine Bacteria (None) /hpf Urine Mucus (None) /hpf Influenza Type A RNA Not Detected (Not Detectd) Influenza Type B (PCR) Not Detected (Not Detectd) Trichomonas Ag (Rapid) (Negative) 05/02/17 05/02/17 05/02/17 Range/Units 08:48 08:48 09:43 WBC (3.8-10.6) k/uL RBC (3.80-5.40) m/uL Hgb (11.4-16.0) gm/dL Hct (34.0-46.0) % MCV (80.0-100.0) fL MCH (25.0-35.0) pg MCHC (31.0-37.0) g/dL RDW (11.5-15.5) % Plt Count (150-450) k/uL Neutrophils % % Lymphocytes % % Monocytes % % Eosinophils % % Basophils % % Neutrophils # (1.3-7.7) k/uL Lymphocytes # (1.0-4.8) k/uL Monocytes # (0-1.0) k/uL Eosinophils # (0-0.7) k/uL Basophils # (0-0.2) k/uL Anisocytosis Microcytosis PT 10.9 (9.0-12.0) sec INR 1.1 (<1.2) APTT 26.7 (22.0-30.0) sec Sodium (137-145) mmol/L Potassium (3.5-5.1) mmol/L Chloride (98-107) mmol/L Carbon Dioxide (22-30) mmol/L Anion Gap mmol/L BUN (7-17) mg/dL Creatinine (0.52-1.04) mg/dL Est GFR (MDRD) Af Amer (>60 ml/min/1.73 sqM) Est GFR (MDRD) Non-Af (>60 ml/min/1.73 sqM) Glucose (74-99) mg/dL Plasma Lactic Acid Bradley 0.8 (0.7-2.0) mmol/L Calcium (8.4-10.2) mg/dL Total Bilirubin (0.2-1.3) mg/dL AST (14-36) U/L ALT (9-52) U/L Alkaline Phosphatase (38-126) U/L Total Protein (6.3-8.2) g/dL Albumin (3.5-5.0) g/dL Urine Color Yellow Urine Appearance Turbid H (Clear) Urine pH 6.0 (5.0-8.0) Ur Specific [place] 1.015 (1.001-1.035) Urine Protein 2+ H (Negative) Urine Glucose (UA) Negative (Negative) Urine Ketones Negative (Negative) Urine Blood Moderate H (Negative) Urine Nitrite Positive H (Negative) Urine Bilirubin Negative (Negative) Urine Urobilinogen 2.0 (<2.0) mg/dL Ur Leukocyte Esterase Large H (Negative) Urine RBC 17 H (0-5) /hpf Urine WBC >182 H (0-5) /hpf Urine WBC Clumps Many H (None) /hpf Ur Squamous Epith Cells 5 H (0-4) /hpf Urine Bacteria Moderate H (None) /hpf Urine Mucus Many H (None) /hpf Influenza Type A RNA (Not Detectd) Influenza Type B (PCR) (Not Detectd) Trichomonas Ag (Rapid) (Negative) 05/02/17 Range/Units 11:43 WBC (3.8-10.6) k/uL RBC (3.80-5.40) m/uL Hgb (11.4-16.0) gm/dL Hct (34.0-46.0) % MCV (80.0-100.0) fL MCH (25.0-35.0) pg MCHC (31.0-37.0) g/dL RDW (11.5-15.5) % Plt Count (150-450) k/uL Neutrophils % % Lymphocytes % % Monocytes % % Eosinophils % % Basophils % % Neutrophils # (1.3-7.7) k/uL Lymphocytes # (1.0-4.8) k/uL Monocytes # (0-1.0) k/uL Eosinophils # (0-0.7) k/uL Basophils # (0-0.2) k/uL Anisocytosis Microcytosis PT (9.0-12.0) sec INR (<1.2) APTT (22.0-30.0) sec Sodium (137-145) mmol/L Potassium (3.5-5.1) mmol/L Chloride (98-107) mmol/L Carbon Dioxide (22-30) mmol/L Anion Gap mmol/L BUN (7-17) mg/dL Creatinine (0.52-1.04) mg/dL Est GFR (MDRD) Af Amer (>60 ml/min/1.73 sqM) Est GFR (MDRD) Non-Af (>60 ml/min/1.73 sqM) Glucose (74-99) mg/dL Plasma Lactic Acid Bradley (0.7-2.0) mmol/L Calcium (8.4-10.2) mg/dL Total Bilirubin (0.2-1.3) mg/dL AST (14-36) U/L ALT (9-52) U/L Alkaline Phosphatase (38-126) U/L Total Protein (6.3-8.2) g/dL Albumin (3.5-5.0) g/dL Urine Color Urine Appearance (Clear) Urine pH (5.0-8.0) Ur Specific [place] (1.001-1.035) Urine Protein (Negative) Urine Glucose (UA) (Negative) Urine Ketones (Negative) Urine Blood (Negative) Urine Nitrite (Negative) Urine Bilirubin (Negative) Urine Urobilinogen (<2.0) mg/dL Ur Leukocyte Esterase (Negative) Urine RBC (0-5) /hpf Urine WBC (0-5) /hpf Urine WBC Clumps (None) /hpf Ur Squamous Epith Cells (0-4) /hpf Urine Bacteria (None) /hpf Urine Mucus (None) /hpf Influenza Type A RNA (Not Detectd) Influenza Type B (PCR) (Not Detectd) Trichomonas Ag (Rapid) Negative (Negative) - EKG Data EKG Comments: EKG was performed shows sinus tach at 190s per minute. MT interval 120 ms. QRS duration 80 ms. QTQTC 3-4/436 ms. No evidence of ST elevation or T-wave inversions. No evidence of atrial ventricular arrhythmias. - Radiology Data Radiology results: report reviewed chest x-rays negative for any acute process. Disposition Clinical Impression: UTI (urinary tract infection), SIRS (systemic inflammatory response syndrome) Disposition: Left Against Medical Advice Condition: Stable Instructions: Urinary Tract Infection in Women (ED) Additional Instructions: patient advised to follow-up with a primary care provider. Complete antibiotic prescription. Return if there is any worsening signs or symptoms. Take the Benadryl the hives. Continue to take Motrin Tylenol for fever. Prescriptions: diphenhydrAMINE [Benadryl] 25 mg PO QID PRN #20 capsule PRN Reason: Itching Ibuprofen [Motrin] 600 mg PO Q8HR PRN #20 tab PRN Reason: Fever Levofloxacin [Levaquin] 750 mg PO DAILY #10 tab Referrals: None,Stated [Primary Care Provider] - 1-2 days Time of Disposition: 11:17
[2017-05-02 09:00] LABS: Anisocytosis Slight; Basophils % (A) 0 %; Eosinophils % (A) 0 %; HCT 39.4 % (34.0-46.0); HGB 12.8 gm/dL (11.4-16.0); Lymphocytes # (A) 1.4 k/uL (1.0-4.8); Lymphocytes % (A) 14 %; MCHC 32.4 g/dL (31.0-37.0); MCV 73.9 fL (80.0-100.0); Microcytosis Slight; Monocytes # (A) 0.4 k/uL (0-1.0); Monocytes % (A) 5 %; Neutrophils # (A) 7.4 k/uL (1.3-7.7); Neutrophils % (A) 79 %; Platelet Count 277 k/uL (150-450); RBC 5.33 m/uL (3.80-5.40); RDW 16.1 % (11.5-15.5); WBC 9.3 k/uL (3.8-10.6)
[2017-05-02 09:17] LABS: ALT 24 U/L (9-52); AST 15 U/L (14-36); Albumin 3.4 g/dL (3.5-5.0); Alkaline Phosphatase 95 U/L (38-126); Anion Gap 12 mmol/L; Blood Urea Nitrogen 8 mg/dL (7-17); Calcium 8.9 mg/dL (8.4-10.2); Carbon Dioxide 24 mmol/L (22-30); Chloride 101 mmol/L (98-107); Glucose 117 mg/dL (74-99); Potassium 3.8 mmol/L (3.5-5.1); Sodium 137 mmol/L (137-145); Total Bilirubin 0.9 mg/dL (0.2-1.3); Total Protein 6.4 g/dL (6.3-8.2)
[2017-05-02 09:28] LABS: INR 1.1 (<1.2); Partial Thromboplastin Time 26.7 sec (22.0-30.0); Prothrombin Time 10.9 sec (9.0-12.0)
--- NOTE | 2017-05-02 09:45 | XR ---
EXAMINATION TYPE: XR chest 2V DATE OF EXAM: 05/02/2017 COMPARISON: 04/25/2017 TECHNIQUE: PA and lateral views submitted. HISTORY: Fever FINDINGS: The lungs are clear and there is no pneumothorax, pleural effusion, or focal pneumonia. IMPRESSION: 1. No acute process.
[2017-05-02] MEDS ORDERED: methylPREDNISolone SOD SUCCI 125 MG/2 ML VIAL IV STA (10:00)
[2017-05-02 10:15] LABS: Appearance,Urine Turbid (Clear); Bacteria,Urine Moderate /hpf; Bilirubin,Urine Negative (Negative); Blood,Urine Moderate (Negative); Color,Urine Yellow; Glucose,Urine (UA) Negative (Negative); Ketones,Urine Negative (Negative); Leukocyte Esterase,Urine Large (Negative); Mucus,Urine Many /hpf; Nitrite,Urine Positive (Negative); Protein,Urine 2+ (Negative); RBC,Urine 17 /hpf (0-5); Specific Gravity,Urine 1.015 (1.001-1.035); Squamous Epithelial Cell,Urine 5 /hpf (0-4); WBC,Urine >182 /hpf (0-5)
[2017-05-02] MEDS ORDERED: CEPHALEXIN 500MG STARTER PACK 4 CAP BTL PO STA (10:56)
[2017-05-02 11:03] VITALS: RESP 16
[2017-05-02 11:37] VITALS: BP 105/60; PULSE 75; TEMP 97.5
[2017-05-03 11:15] LABS: Chlamydia trachomatis rRNA Not detected (Not detected); Neisseria gonorrhoeae rRNA Not detected (Not detected)
== END 2017-05-02 11:54 | disposition left against medical advice (07) ==
LOC: EC 08:04
DX: N39.0 Urinary tract infection, site not specified (principal); F17.200 Nicotine dependence, unspecified, uncomplicated; Z53.29 Procedure and treatment not carried out because of patient's decision for other reasons
CPT/HCPCS: 99285; 96365; 96375 ×2; 96361 ×2; 36415; 94640; 93005; 80053; 87591; 87491; 83605; 85025; 85610; 85730; 81001; 87040; 87808; 87070; 87086; 87205; 87502; 71046; J1200; J2930; J1956; 87077; 87186

== ENCOUNTER 2017-05-03 13:04 | Emergency (ER) | payer OTHER ==
[2017-05-03] MEDS ORDERED: SODIUM CHLORIDE 0.9% 1,000 ML IV STA (13:42)
[2017-05-03] MEDS ORDERED: ACETAMINOPHEN TAB 500 MG TAB PO STA (13:42)
[2017-05-03] MEDS ORDERED: DEXAMETHASONE SOD PHOSPHATE 10 MG/ML 1 ML VIAL IV STA (13:43)
[2017-05-03 14:28] LABS: Anisocytosis Slight; Basophils % (A) 0 %; Eosinophils % (A) 0 %; HCT 34.5 % (34.0-46.0); HGB 10.7 gm/dL (11.4-16.0); Hypochromasia Slight; Lymphocytes # (A) 1.4 k/uL (1.0-4.8); Lymphocytes % (A) 11 %; MCH 23.6 pg (25.0-35.0); MCV 76.2 fL (80.0-100.0); Mean Platelet Volume 7.3; Microcytosis Slight; Monocytes # (A) 0.5 k/uL (0-1.0); Monocytes % (A) 4 %; Neutrophils % (A) 84 %; Platelet Count 249 k/uL (150-450); RBC 4.53 m/uL (3.80-5.40); RDW 16.4 % (11.5-15.5); WBC 13.1 k/uL (3.8-10.6)
--- NOTE | 2017-05-03 14:28 | XR ---
EXAMINATION TYPE: XR chest 2V DATE OF EXAM: 05/03/2017 COMPARISON: 05/02/2017 HISTORY: Chest pain TECHNIQUE: Frontal and lateral views of the chest are obtained. FINDINGS: There is no focal air space opacity. No evidence for pneumothorax. No pleural effusion. The cardiac silhouette size is within normal limits. The osseous structures are grossly intact. IMPRESSION: 1. No acute cardiopulmonary process.
[2017-05-03 14:34] LABS: ALT 26 U/L (9-52); AST 15 U/L (14-36); Albumin 3.2 g/dL (3.5-5.0); Alkaline Phosphatase 92 U/L (38-126); Anion Gap 12 mmol/L; Blood Urea Nitrogen 10 mg/dL (7-17); Calcium 9.3 mg/dL (8.4-10.2); Carbon Dioxide 19 mmol/L (22-30); Chloride 111 mmol/L (98-107); Glucose 103 mg/dL (74-99); Potassium 4.1 mmol/L (3.5-5.1); Sodium 142 mmol/L (137-145); Total Bilirubin 0.2 mg/dL (0.2-1.3); Total Protein 6.1 g/dL (6.3-8.2)
[2017-05-03 14:44] LABS: Appearance,Urine Cloudy (Clear); Bacteria,Urine Rare /hpf; Bilirubin,Urine Negative (Negative); Blood,Urine Small (Negative); Color,Urine Yellow; Glucose,Urine (UA) Negative (Negative); Ketones,Urine Negative (Negative); Leukocyte Esterase,Urine Large (Negative); Mucus,Urine Occasional /hpf; Nitrite,Urine Negative (Negative); Protein,Urine 1+ (Negative); RBC,Urine 19 /hpf (0-5); Specific Gravity,Urine 1.015 (1.001-1.035); Squamous Epithelial Cell,Urine 3 /hpf (0-4); Urobilinogen,Urine <2.0 mg/dL (<2.0); WBC,Urine 179 /hpf (0-5)
--- NOTE | 2017-05-03 14:52 | ED ---
General Adult HPI - General Chief complaint: Recheck/Abnormal Lab/Rx Stated complaint: chest pressure/swollen face-revisit Time Seen by Provider: 05/03/17 13:30 Source: patient, RN notes reviewed, old records reviewed Mode of arrival: ambulatory Limitations: no limitations - History of Present Illness Initial comments: 21-year-old female presenting for reevaluation of fever, generalized weakness, rash and facial swelling. Patient was seen in the emergency department yesterday, diagnosed with pyelonephritis. Patient had to leave AGAINST MEDICAL ADVICE secondary to having a small infiltrate at home. She will presents today after having taken one dose of outpatient antibiotics. She states she is still feeling somewhat ill. Has had subjective fever and chills. She is also developed a cough over the past 24 hours. Urine culture was obtained yesterday , this is pending, did show gram-negative bacilli with no susceptibilities present. She was prescribed Levaquin. Patient also complains of rash which is significantly improved from yesterday, had some mild facial swelling. - Related Data Previous Rx's Medication Instructions Recorded Ibuprofen [Motrin] 600 mg PO Q8HR PRN #20 tab 05/02/17 Levofloxacin [Levaquin] 750 mg PO DAILY #10 tab 05/02/17 diphenhydrAMINE [Benadryl] 25 mg PO QID PRN #20 capsule 05/02/17 Allergies Allergy/AdvReac Type Severity Reaction Status Date / Time No Known Allergies Allergy Verified 05/03/17 14:01 Review of Systems ROS Statement: Those systems with pertinent positive or pertinent negative responses have been documented in the HPI. ROS Other: All systems not noted in ROS Statement are negative. Past Medical History Past Medical History: Asthma Additional Past Medical History / Comment(s): PT STATES OCCASIONAL SHARP PAIN IN CHEST WHEN SHE TAKES A BREATH - STATES HER FATHER HAS THE SAME PROBLEM., MISSED -DENIES ANY VAGINAL BLEEDING. History of Any Multi-Drug Resistant Organisms: None Reported Past Surgical History: Section, Orthopedic Surgery Additional Past Surgical History / Comment(s): left wrist fx, d and c 2014 Past Anesthesia/Blood Transfusion Reactions: No Reported Reaction Additional Past Anesthesia/Blood Transfusion Reaction / Comment(s): STATES SHE WOKE UP CRYING. Past Psychological History: Anxiety, Bipolar, Depression Smoking Status: Current every day smoker Past Alcohol Use History: Occasional Past Drug Use History: None Reported - Past Family History Mother Family Medical History: No Reported History General Exam Limitations: no limitations General appearance: alert, in no apparent distress Head exam: Present: atraumatic, normocephalic Eye exam: Present: normal appearance, PERRL ENT exam: Present: normal exam Neck exam: Present: normal inspection. Absent: tenderness, meningismus Respiratory exam: Present: normal lung sounds bilaterally. Absent: respiratory distress, wheezes Cardiovascular Exam: Present: regular rate, normal rhythm GI/Abdominal exam: Present: soft. Absent: distended, tenderness Extremities exam: Present: normal inspection. Absent: full ROM, tenderness Back exam: Present: normal inspection. Absent: full ROM, tenderness Neurological exam: Present: alert, oriented X3, CN II-XII intact Psychiatric exam: Present: normal affect, normal mood Skin exam: Present: warm, dry, intact. Absent: cyanosis, diaphoretic Course Vital Signs 05/03/17 05/03/17 13:09 15:17 Temperature 97.4 F L 97.7 F Pulse Rate 89 57 L Respiratory 20 16 Rate Blood Pressure 132/83 120/67 O2 Sat by Pulse 99 95 Oximetry Medical Decision Making - Medical Decision Making 21-year-old female presented for reevaluation pyelonephritis. Urinalysis is obtained, does show improved signs of infection, rare bacteria compared to moderate, there is reduction in white blood cell count in the urine. Urine is somewhat more clear. Vital signs stable and improved from yesterday. White blood cell count 13.1, reported patient did receive steroids. Lactic acid normal. Flu was negative and chest x-ray is negative. Patient is given an outpatient primary care physician. She will continue to take her Levaquin from which she has taken only one dose so far. She will return to the emergency department with any changing or worsening symptoms. She will continue oral hydration at home. - Lab Data Result diagrams: 05/03/17 14:07 05/03/17 14:07 Lab Results 05/03/17 05/03/17 05/03/17 Range/Units 14:07 14:07 14:07 WBC 13.1 H (3.8-10.6) k/uL RBC 4.53 (3.80-5.40) m/uL Hgb 10.7 L (11.4-16.0) gm/dL Hct 34.5 (34.0-46.0) % MCV 76.2 L (80.0-100.0) fL MCH 23.6 L (25.0-35.0) pg MCHC 31.0 (31.0-37.0) g/dL RDW 16.4 H (11.5-15.5) % Plt Count 249 (150-450) k/uL Neutrophils % 84 % Lymphocytes % 11 % Monocytes % 4 % Eosinophils % 0 % Basophils % 0 % Neutrophils # 11.0 H (1.3-7.7) k/uL Lymphocytes # 1.4 (1.0-4.8) k/uL Monocytes # 0.5 (0-1.0) k/uL Eosinophils # 0.0 (0-0.7) k/uL Basophils # 0.0 (0-0.2) k/uL Hypochromasia Slight Anisocytosis Slight Microcytosis Slight Sodium 142 (137-145) mmol/L Potassium 4.1 (3.5-5.1) mmol/L Chloride 111 H (98-107) mmol/L Carbon Dioxide 19 L (22-30) mmol/L Anion Gap 12 mmol/L BUN 10 (7-17) mg/dL Creatinine 0.65 (0.52-1.04) mg/dL Est GFR (MDRD) Af Amer >60 (>60 ml/min/1.73 sqM) Est GFR (MDRD) Non-Af >60 (>60 ml/min/1.73 sqM) Glucose 103 H (74-99) mg/dL Plasma Lactic Acid Bradley 1.6 (0.7-2.0) mmol/L Calcium 9.3 (8.4-10.2) mg/dL Total Bilirubin 0.2 (0.2-1.3) mg/dL AST 15 (14-36) U/L ALT 26 (9-52) U/L Alkaline Phosphatase 92 (38-126) U/L Total Protein 6.1 L (6.3-8.2) g/dL Albumin 3.2 L (3.5-5.0) g/dL Urine Color Urine Appearance (Clear) Urine pH (5.0-8.0) Ur Specific [place] (1.001-1.035) Urine Protein (Negative) Urine Glucose (UA) (Negative) Urine Ketones (Negative) Urine Blood (Negative) Urine Nitrite (Negative) Urine Bilirubin (Negative) Urine Urobilinogen (<2.0) mg/dL Ur Leukocyte Esterase (Negative) Urine RBC (0-5) /hpf Urine WBC (0-5) /hpf Ur Squamous Epith Cells (0-4) /hpf Urine Bacteria (None) /hpf Urine Mucus (None) /hpf Influenza Type A RNA (Not Detectd) Influenza Type B (PCR) (Not Detectd) 05/03/17 05/03/17 Range/Units 14:07 14:12 WBC (3.8-10.6) k/uL RBC (3.80-5.40) m/uL Hgb (11.4-16.0) gm/dL Hct (34.0-46.0) % MCV (80.0-100.0) fL MCH (25.0-35.0) pg MCHC (31.0-37.0) g/dL RDW (11.5-15.5) % Plt Count (150-450) k/uL Neutrophils % % Lymphocytes % % Monocytes % % Eosinophils % % Basophils % % Neutrophils # (1.3-7.7) k/uL Lymphocytes # (1.0-4.8) k/uL Monocytes # (0-1.0) k/uL Eosinophils # (0-0.7) k/uL Basophils # (0-0.2) k/uL Hypochromasia Anisocytosis Microcytosis Sodium (137-145) mmol/L Potassium (3.5-5.1) mmol/L Chloride (98-107) mmol/L Carbon Dioxide (22-30) mmol/L Anion Gap mmol/L BUN (7-17) mg/dL Creatinine (0.52-1.04) mg/dL Est GFR (MDRD) Af Amer (>60 ml/min/1.73 sqM) Est GFR (MDRD) Non-Af (>60 ml/min/1.73 sqM) Glucose (74-99) mg/dL Plasma Lactic Acid Bradley (0.7-2.0) mmol/L Calcium (8.4-10.2) mg/dL Total Bilirubin (0.2-1.3) mg/dL AST (14-36) U/L ALT (9-52) U/L Alkaline Phosphatase (38-126) U/L Total Protein (6.3-8.2) g/dL Albumin (3.5-5.0) g/dL Urine Color Yellow Urine Appearance Cloudy H (Clear) Urine pH 6.0 (5.0-8.0) Ur Specific [place] 1.015 (1.001-1.035) Urine Protein 1+ H (Negative) Urine Glucose (UA) Negative (Negative) Urine Ketones Negative (Negative) Urine Blood Small H (Negative) Urine Nitrite Negative (Negative) Urine Bilirubin Negative (Negative) Urine Urobilinogen <2.0 (<2.0) mg/dL Ur Leukocyte Esterase Large H (Negative) Urine RBC 19 H (0-5) /hpf Urine WBC 179 H (0-5) /hpf Ur Squamous Epith Cells 3 (0-4) /hpf Urine Bacteria Rare H (None) /hpf Urine Mucus Occasional H (None) /hpf Influenza Type A RNA Not Detected (Not Detectd) Influenza Type B (PCR) Not Detected (Not Detectd) Disposition Clinical Impression: Pyelonephritis Disposition: HOME SELF-CARE Condition: Good Instructions: Kidney Infection (ED), Urinary Tract Infection in Women (ED) Referrals: None,Stated [Primary Care Provider] - 1-2 days Eric Solano MD [STAFF PHYSICIAN] - 1-2 days Time of Disposition: 15:31
[2017-05-03 15:18] VITALS: BP 120/67; PULSE 57; RESP 16; TEMP 97.7
== END 2017-05-03 15:41 | disposition home or self-care (01) ==
LOC: EC 13:04
DX: N12 Tubulo-interstitial nephritis, not specified as acute or chronic (principal); F17.200 Nicotine dependence, unspecified, uncomplicated
CPT/HCPCS: 99284; 96374; 96361 ×2; 36415; 80053; 83605; 85025; 81001; 87086; 87502; 71046; J1100

== ENCOUNTER 2017-08-18 01:07 | Emergency (ER) | payer OTHER ==
[2017-08-18] MEDS ORDERED: PENICILLIN VK 500MG STARTER 4 TAB BTL PO STA (01:58)
[2017-08-18] MEDS ORDERED: ACET/COD 300 MG/30 MG STARTER PACK 6 TAB BTL PO STA (01:58)
[2017-08-18] MEDS ORDERED: KETOROLAC 30 MG/ML 1 ML VIAL IM STA (01:58)
--- NOTE | 2017-08-18 02:00 | ED ---
ENT HPI - General Chief complaint: Dental/Oral Stated complaint: Dental Pain Time Seen by Provider: 08/18/17 01:14 Source: patient Mode of arrival: ambulatory Limitations: no limitations - History of Present Illness Initial comments: 21-year-old female patient presents to the emergency department today for evaluation of right upper dental pain. Patient states that this started earlier today. Patient states that the pain is so bad that she cannot sleep. She denies any fever, chills, facial swelling, nausea, vomiting, trismus, or difficulty swallowing. Patient states that she has been told in the past that she has an impacted wisdom tooth to the area. - Related Data Previous Rx's Medication Instructions Recorded Ibuprofen [Motrin] 600 mg PO Q8HR PRN #20 tab 05/02/17 Levofloxacin [Levaquin] 750 mg PO DAILY #10 tab 05/02/17 diphenhydrAMINE [Benadryl] 25 mg PO QID PRN #20 capsule 05/02/17 Acetaminophen-Codeine 300-30mg 1 tab PO Q6H PRN #12 tablet 08/18/17 [Tylenol #3] Ibuprofen [Motrin] 600 mg PO Q8HR PRN #30 tab 08/18/17 Penicillin V Potassium [Pen Vee K] 500 mg PO Q6H #40 tablet 08/18/17 Allergies Allergy/AdvReac Type Severity Reaction Status Date / Time No Known Allergies Allergy Verified 08/18/17 01:12 Review of Systems ROS Statement: Those systems with pertinent positive or pertinent negative responses have been documented in the HPI. ROS Other: All systems not noted in ROS Statement are negative. Past Medical History Past Medical History: Asthma Additional Past Medical History / Comment(s): PT STATES OCCASIONAL SHARP PAIN IN CHEST WHEN SHE TAKES A BREATH - STATES HER FATHER HAS THE SAME PROBLEM., MISSED -DENIES ANY VAGINAL BLEEDING. History of Any Multi-Drug Resistant Organisms: None Reported Past Surgical History: Section, Orthopedic Surgery Additional Past Surgical History / Comment(s): left wrist fx, d and c 2014 Past Anesthesia/Blood Transfusion Reactions: No Reported Reaction Additional Past Anesthesia/Blood Transfusion Reaction / Comment(s): STATES SHE WOKE UP CRYING. Past Psychological History: Anxiety, Bipolar, Depression Smoking Status: Current every day smoker Past Alcohol Use History: Occasional Past Drug Use History: None Reported - Past Family History Mother Family Medical History: No Reported History General Exam Limitations: no limitations General appearance: alert, in no apparent distress, other (This is a well- developed, well-nourished adult female patient in no acute distress. Vital signs upon presentation are temperature 97.3F, pulse 77, respirations 16, blood pressure 115/82, pulse ox 100% on room air.) Eye exam: Present: normal appearance, PERRL, EOMI. Absent: scleral icterus, conjunctival injection, periorbital swelling ENT exam: Present: normal exam, normal oropharynx, mucous membranes moist, other (Patient has poor dentition with dental caries and fractured tooth to the right upper jaw. There is evidence of gingival erythema and swelling beyond tooth #1. There is no evidence of drainable abscess.) Respiratory exam: Present: normal lung sounds bilaterally. Absent: respiratory distress, wheezes, rales, rhonchi, stridor Cardiovascular Exam: Present: regular rate, normal rhythm, normal heart sounds. Absent: systolic murmur, diastolic murmur, rubs, gallop, clicks Neurological exam: Present: alert, oriented X3, CN II-XII intact Psychiatric exam: Present: normal affect, normal mood Skin exam: Present: warm, dry, intact, normal color. Absent: rash Course Vital Signs 08/18/17 08/18/17 08/18/17 01:09 01:27 02:17 Temperature 97.3 F L 97.9 F 97.4 F L Pulse Rate 77 65 70 Respiratory 16 18 14 Rate Blood Pressure 115/82 116/64 120/70 O2 Sat by Pulse 100 99 98 Oximetry Medical Decision Making - Medical Decision Making 21-year-old female patient presented to the emergency department today for complaints of right upper dental pain. Physical examination did reveal poor dentition with gingival erythema and swelling. No evidence of drainable abscess. Patient no lymphadenopathy. We did give patient an injection of Toradol and a starter pack for Tylenol with codeine. She'll be given a prescription of pain medication and antibiotics. She is instructed to follow- up with dentistry as soon as possible. She was given referrals. She is instructed to return here immediately for any new, worsening, or concerning symptoms. She verbalizes understanding and agrees with this plan. Disposition Clinical Impression: Dental caries, Dental abscess Disposition: HOME SELF-CARE Condition: Good Instructions: Dental Abscess (ED), Dental Caries (ED) Additional Instructions: Apply warm compresses to the outside of the face. Take medications as directed. Follow-up with the dentist as soon as possible. Return here immediately for any new, worsening, or concerning symptoms. Please follow up with the [facility] dental clinic. [facility] [place] [address]. Phone number for new patients or [phone] for existing patients. [facility]. Must pay for x-rays then services are free. Call for an appoitnment. Prescriptions: Acetaminophen-Codeine 300-30mg [Tylenol #3] 1 tab PO Q6H PRN #12 tablet PRN Reason: Pain Ibuprofen [Motrin] 600 mg PO Q8HR PRN #30 tab PRN Reason: Pain Penicillin V Potassium [Pen Vee K] 500 mg PO Q6H #40 tablet Is patient prescribed a controlled substance at d/c from ED?: Yes When asked, does pt state using other controlled substances?: No Referrals: Reynaldo Cisse MD [Primary Care Provider] - 1-2 days Time of Disposition: 01:59
[2017-08-18 02:18] VITALS: BP 120/70; PULSE 70; RESP 14; TEMP 97.4
== END 2017-08-18 02:20 | disposition home or self-care (01) ==
LOC: EC 01:07
DX: K02.9 Dental caries, unspecified (principal); K04.7 Periapical abscess without sinus; F17.200 Nicotine dependence, unspecified, uncomplicated
CPT/HCPCS: 96372; 99283

== ENCOUNTER 2017-08-18 17:16 | Emergency (ER) | payer OTHER ==
[2017-08-18 17:29] VITALS: BP 113/58; PULSE 86; RESP 16; TEMP 98.6
--- NOTE | 2017-08-18 17:52 | ED ---
Recheck HPI - General Chief Complaint: Recheck/Abnormal Lab/Rx Stated Complaint: Poss Reaction to meds, tooth pain Time Seen by Provider: 08/18/17 17:36 Source: patient, RN notes reviewed Mode of arrival: ambulatory Limitations: no limitations - History of Present Illness Initial Comments: This is a 21-year-old female who presents to the emergency department with chief complaint of possible med reaction. Patient states that she was seen here last night for dental pain. She states that she was prescribed penicillin and Tylenol with Codeine. She states that today she took one Tylenol with codeine and felt no relief so then took a second one. She states that she became very nauseous. She also admits to itchiness. Denies any rashes or difficulty breathing. Patient states that she continues to have posterior upper right dental pain. She states she has not followed up with the dentist as she is unsure who can take her insurance. Denies any fevers or chills, chest pain or shortness of breath, abdominal pain, vomiting, diarrhea or constipation. - Related Data Previous Rx's Medication Instructions Recorded Acetaminophen-Codeine 300-30mg 1 tab PO Q6H PRN #12 tablet 08/18/17 [Tylenol #3] Ibuprofen 600 mg PO Q6HR #20 tablet 08/18/17 Ibuprofen [Motrin] 600 mg PO Q8HR PRN #30 tab 08/18/17 Penicillin V Potassium [Pen Vee K] 500 mg PO Q6H #40 tablet 08/18/17 Allergies Allergy/AdvReac Type Severity Reaction Status Date / Time No Known Allergies Allergy Verified 08/18/17 17:36 Review of Systems ROS Statement: Those systems with pertinent positive or pertinent negative responses have been documented in the HPI. ROS Other: All systems not noted in ROS Statement are negative. Past Medical History Past Medical History: Asthma Additional Past Medical History / Comment(s): PT STATES OCCASIONAL SHARP PAIN IN CHEST WHEN SHE TAKES A BREATH - STATES HER FATHER HAS THE SAME PROBLEM., MISSED -DENIES ANY VAGINAL BLEEDING. History of Any Multi-Drug Resistant Organisms: None Reported Past Surgical History: Section, Orthopedic Surgery Additional Past Surgical History / Comment(s): left wrist fx, d and c 2014 Past Anesthesia/Blood Transfusion Reactions: No Reported Reaction Additional Past Anesthesia/Blood Transfusion Reaction / Comment(s): STATES SHE WOKE UP CRYING. Past Psychological History: Anxiety, Bipolar, Depression Smoking Status: Current every day smoker Past Alcohol Use History: Occasional Past Drug Use History: None Reported - Past Family History Mother Family Medical History: No Reported History General Exam - General Exam Comments Initial Comments: General: Awake and alert, well-developed; in no apparent distress. HEENT: Head atraumatic, normocephalic. Pupils are equal, round and reactive to light. Extraocular movements intact. Oropharynx moist without erythema or exudate. Poor dentition throughout with multiple dental caries. Tooth #1 appears to be missing. Gumline is tender on palpation. No masses or areas of fluctuance noted. Neck: Supple. Normal ROM. Cardiovascular: Regular rate and rhythm. No murmurs, rubs or gallops. Chest symmetrical. Respiratory: Lungs clear to auscultation bilaterally. No wheezes, rales or rhonchi. Normal respiratory effort with no use of accessory muscles. Musculoskeletal: Normal ROM, no tenderness bilateral upper and lower extremities. Ambulating normally. Skin: Bruno, warm and dry without rashes or lesions. Neurological: Alert and oriented x3. CN II-XII grossly intact. Speech is fluent and answers are appropriate. No focal neuro deficits. Psychiatric: Normal mood and affect. No overt signs of depression or anxiety noted. Limitations: no limitations Course Vital Signs 08/18/17 17:28 Temperature 98.6 F Pulse Rate 86 Respiratory 16 Rate Blood Pressure 113/58 O2 Sat by Pulse 98 Oximetry Medical Decision Making - Medical Decision Making This is a 21-year-old female who presents to the emergency department with chief complaint of possible med reaction and dental pain. Patient states she became nauseous after taking Tylenol with Codeine. While in the emergency department, she states she no longer feels nauseous. No difficulty breathing or rashes. Recommended discontinuing the use of Tylenol with Codeine. Patient continues to complain of right upper dental pain. She was started on penicillin. I will write patient a prescription for ibuprofen 600mg. Strongly recommended following up with a dentist. Patient's vital signs are stable and she is in no acute distress. She will be discharged home at this time. All questions answered. Disposition Clinical Impression: Dental caries Disposition: HOME SELF-CARE Condition: Good Instructions: Toothache (ED), General Allergic Reaction (ED) Additional Instructions: Please take medications as prescribed. Please follow up with a dentist as soon as possible. Please discontinue the use of Tylenol with Codeine. Please follow up with primary care provider within 1-2 days. Return to emergency department if symptoms should worsen or any concerns arise. Prescriptions: Ibuprofen 600 mg PO Q6HR #20 tablet Is patient prescribed a controlled substance at d/c from ED?: No Referrals: Reynaldo Cisse MD [Primary Care Provider] - 1-2 days Time of Disposition: 18:12
[2017-08-18] MEDS ORDERED: ONDANSETRON 4 MG ODT STARTER PACK 2 TAB BTL PO STA (18:05)
== END 2017-08-18 18:50 | disposition home or self-care (01) ==
LOC: EC 17:16
DX: K02.9 Dental caries, unspecified (principal); R11.0 Nausea; F17.200 Nicotine dependence, unspecified, uncomplicated
CPT/HCPCS: 99282; S0119

== ENCOUNTER 2017-09-18 05:09 | Emergency (ER) | payer OTHER ==
[2017-09-18] MEDS ORDERED: ALBUTEROL NEBULIZED 2.5 MG/3 ML INHALATION STA (05:44)
[2017-09-18] MEDS ORDERED: predniSONE 20 MG TAB PO STA (05:44)
--- NOTE | 2017-09-18 05:46 | ED ---
URI HPI - General Chief Complaint: Upper Respiratory Infection Stated Complaint: Possible URI Time Seen by Provider: 09/18/17 05:20 Source: patient Mode of arrival: ambulatory Limitations: no limitations - History of Present Illness Initial Comments: This patient is a 21-year-old woman who presents for cough, feeling of chest congestion, a little bit of headache when she coughs. Symptoms had started yesterday a bit worse today. She states is similar to previous episode of bronchitis. She does have a little bit of yellowish sputum. Denies william shortness of breath. MD Complaint: cough, other (Ingestion and headache) -: days(s) Severity: moderate Quality: burning Consistency: constant Improves With: nothing Worsens With: nothing Associated Symptoms: cough Treatments Prior to Arrival: none - Related Data Previous Rx's Medication Instructions Recorded Acetaminophen-Codeine 300-30mg 1 tab PO Q6H PRN #12 tablet 08/18/17 [Tylenol #3] Ibuprofen 600 mg PO Q6HR #20 tablet 08/18/17 Ibuprofen [Motrin] 600 mg PO Q8HR PRN #30 tab 08/18/17 Penicillin V Potassium [Pen Vee K] 500 mg PO Q6H #40 tablet 08/18/17 Albuterol Inhaler [Ventolin Hfa 1 - 2 puff INHALATION Q6HR PRN #1 09/18/17 Inhaler] inhaler predniSONE 60 mg PO DAILY #30 tab 09/18/17 Allergies Allergy/AdvReac Type Severity Reaction Status Date / Time No Known Allergies Allergy Verified 09/18/17 05:14 Review of Systems ROS Statement: Those systems with pertinent positive or pertinent negative responses have been documented in the HPI. ROS Other: All systems not noted in ROS Statement are negative. Constitutional: Denies: fever, chills ENT: Reports: congestion Respiratory: Reports: cough. Denies: dyspnea, wheezes Cardiovascular: Reports: chest pain. Denies: palpitations, orthopnea, edema, syncope Gastrointestinal: Denies: abdominal pain, nausea, vomiting Genitourinary: Denies: dysuria, hematuria Musculoskeletal: Denies: back pain Skin: Denies: rash Neurological: Reports: headache. Denies: weakness, numbness, paresthesias Past Medical History Past Medical History: Asthma Additional Past Medical History / Comment(s): PT STATES OCCASIONAL SHARP PAIN IN CHEST WHEN SHE TAKES A BREATH - STATES HER FATHER HAS THE SAME PROBLEM., MISSED -DENIES ANY VAGINAL BLEEDING. History of Any Multi-Drug Resistant Organisms: None Reported Past Surgical History: Section, Orthopedic Surgery Additional Past Surgical History / Comment(s): left wrist fx, d and c 2014 Past Anesthesia/Blood Transfusion Reactions: No Reported Reaction Additional Past Anesthesia/Blood Transfusion Reaction / Comment(s): STATES SHE WOKE UP CRYING. Past Psychological History: Anxiety, Bipolar, Depression Smoking Status: Current every day smoker Past Alcohol Use History: Occasional Past Drug Use History: None Reported - Past Family History Mother Family Medical History: No Reported History General Exam Limitations: no limitations General appearance: alert, in no apparent distress Head exam: Present: atraumatic, normocephalic Eye exam: Present: normal appearance. Absent: scleral icterus, conjunctival injection ENT exam: Present: normal oropharynx Neck exam: Present: normal inspection Respiratory exam: Present: normal lung sounds bilaterally, wheezes, chest wall tenderness. Absent: respiratory distress, rales, rhonchi, stridor, accessory muscle use Cardiovascular Exam: Present: regular rate, normal rhythm, normal heart sounds. Absent: systolic murmur, diastolic murmur, rubs, gallop GI/Abdominal exam: Present: soft. Absent: distended, tenderness, guarding, rebound Extremities exam: Present: normal inspection, normal capillary refill. Absent: pedal edema, calf tenderness Back exam: Present: normal inspection. Absent: CVA tenderness (R), CVA tenderness (L) Neurological exam: Present: alert Skin exam: Present: warm, dry, intact, normal color. Absent: rash Course Vital Signs 09/18/17 09/18/17 09/18/17 05:12 05:59 06:04 Temperature 97.2 F L Pulse Rate 95 84 88 Respiratory 16 Rate Blood Pressure 106/65 O2 Sat by Pulse 95 Oximetry 09/18/17 06:59 Temperature 97.8 F Pulse Rate 85 Respiratory 18 Rate Blood Pressure 95/51 O2 Sat by Pulse Oximetry Disposition Clinical Impression: Upper respiratory infection Disposition: HOME SELF-CARE Condition: Good Instructions: Upper Respiratory Infection (ED) Prescriptions: Albuterol Inhaler [Ventolin Hfa Inhaler] 1 - 2 puff INHALATION Q6HR PRN #1 inhaler PRN Reason: Wheezing predniSONE 60 mg PO DAILY #30 tab Is patient prescribed a controlled substance at d/c from ED?: No Referrals: Reynaldo Cisse MD [Primary Care Provider] - 1-2 days
[2017-09-18] MEDS ORDERED: predniSONE 50 MG TAB PO STA (05:56)
[2017-09-18] MEDS ORDERED: predniSONE 10 MG TAB PO STA (05:56)
--- NOTE | 2017-09-18 06:40 | XR ---
EXAM: XR Chest, 1 View CLINICAL HISTORY: XR Reason: sob TECHNIQUE: Frontal view of the chest. COMPARISON: 05/03/2017. FINDINGS: Lungs: Unremarkable. No consolidation. Pleural space: Unremarkable. No pneumothorax. Heart: Unremarkable. No cardiomegaly. Mediastinum: Unremarkable. Bones/joints: Unremarkable. IMPRESSION: No evidence of acute cardiopulmonary disease.
[2017-09-18 07:00] VITALS: BP 95/51; PULSE 85; RESP 18; TEMP 97.8
== END 2017-09-18 06:54 | disposition home or self-care (01) ==
LOC: EC 05:09
DX: J06.9 Acute upper respiratory infection, unspecified (principal); J45.909 Unspecified asthma, uncomplicated; F17.200 Nicotine dependence, unspecified, uncomplicated
CPT/HCPCS: 94640; 71045; 99283; J7512 ×2

== ENCOUNTER 2017-10-03 13:08 | Emergency (ER) | payer OTHER ==
[2017-10-03 13:20] VITALS: RESP 18
[2017-10-03] MEDS ORDERED: SODIUM CHLORIDE 0.9% 1,000 ML IV ONE (13:59)
[2017-10-03 14:16] LABS: Appearance,Urine Turbid (Clear); Bacteria,Urine Few /hpf; Bilirubin,Urine Negative (Negative); Blood,Urine Moderate (Negative); Color,Urine Yellow; Glucose,Urine (UA) Negative (Negative); Ketones,Urine Trace (Negative); Leukocyte Esterase,Urine Large (Negative); Mucus,Urine Moderate /hpf; Nitrite,Urine Negative (Negative); Protein,Urine 3+ (Negative); RBC,Urine 119 /hpf (0-5); Specific Gravity,Urine 1.024 (1.001-1.035); Squamous Epithelial Cell,Urine 4 /hpf (0-4); WBC,Urine >182 /hpf (0-5)
--- NOTE | 2017-10-03 14:20 | ED ---
Abdominal Pain HPI - General Chief Complaint: Abdominal Pain Stated Complaint: flank pain Time Seen by Provider: 10/03/17 13:28 Source: patient, RN notes reviewed, old records reviewed Mode of arrival: ambulatory Limitations: no limitations - History of Present Illness Initial Comments: 21-year-old female presents to the emergency department today chief complaint of dysuria for the past week. She is also concern for sex Asians an infection. She reports it unprotected sex one month ago. Concern for possible as well. Patient states that she's had no abnormal vaginal discharge. Reports urinary frequency and incomplete urination H time she goes. Patient states that she has had no abdominal pain. Reports that she's had occasional left flank pain however she's been having this pain for many months. No fevers or chills. - Related Data Previous Rx's Medication Instructions Recorded Phenazopyridine HCl [Pyridium] 100 mg PO TID #9 tab 10/03/17 Sulfamethox-Tmp 800-160Mg [Bactrim 1 tab PO Q12HR #14 tab 10/03/17 DS 800-160 mg] Allergies Allergy/AdvReac Type Severity Reaction Status Date / Time No Known Allergies Allergy Verified 10/03/17 13:49 Review of Systems ROS Statement: Those systems with pertinent positive or pertinent negative responses have been documented in the HPI. ROS Other: All systems not noted in ROS Statement are negative. Past Medical History Past Medical History: Asthma Additional Past Medical History / Comment(s): PT STATES OCCASIONAL SHARP PAIN IN CHEST WHEN SHE TAKES A BREATH - STATES HER FATHER HAS THE SAME PROBLEM., MISSED -DENIES ANY VAGINAL BLEEDING. History of Any Multi-Drug Resistant Organisms: None Reported Past Surgical History: Section, Orthopedic Surgery Additional Past Surgical History / Comment(s): left wrist fx, d and c 2014 Past Anesthesia/Blood Transfusion Reactions: No Reported Reaction Additional Past Anesthesia/Blood Transfusion Reaction / Comment(s): STATES SHE WOKE UP CRYING. Past Psychological History: Anxiety, Bipolar, Depression Smoking Status: Current every day smoker Past Alcohol Use History: Occasional Past Drug Use History: None Reported - Past Family History Mother Family Medical History: No Reported History General Exam - General Exam Comments Initial Comments: 21-year-old female. Alert and oriented. No acute distress. Limitations: no limitations General appearance: alert, in no apparent distress Head exam: Present: atraumatic, normocephalic, normal inspection Eye exam: Present: normal appearance, PERRL, EOMI. Absent: scleral icterus, conjunctival injection, periorbital swelling ENT exam: Present: normal exam, mucous membranes moist Neck exam: Present: normal inspection. Absent: tenderness, meningismus, lymphadenopathy Respiratory exam: Present: normal lung sounds bilaterally. Absent: respiratory distress, wheezes, rales, rhonchi, stridor Cardiovascular Exam: Present: regular rate, normal rhythm, normal heart sounds. Absent: systolic murmur, diastolic murmur, rubs, gallop, clicks GI/Abdominal exam: Present: soft, normal bowel sounds. Absent: distended, tenderness, guarding, rebound, rigid External exam: Present: normal external exam Speculum exam: Present: normal speculum exam. Absent: erythema, vaginal discharge, cervical discharge, vaginal bleeding By manual exam: Present: normal by manual exam. Absent: cervical motion tenderness, adnexal tenderness Extremities exam: Present: normal inspection, full ROM, normal capillary refill. Absent: tenderness, pedal edema, joint swelling, calf tenderness Back exam: Present: normal inspection Neurological exam: Present: alert, oriented X3, CN II-XII intact Psychiatric exam: Present: normal affect, normal mood Skin exam: Present: warm, dry, intact, normal color. Absent: rash Course Vital Signs 10/03/17 13:19 Temperature 98.1 F Pulse Rate 77 Respiratory 18 Rate Blood Pressure 131/81 O2 Sat by Pulse 99 Oximetry Medical Decision Making - Medical Decision Making 21-year-old female presents emergency department today with 1 week of dysuria also concern for sexual transmitted infection from unprotected sex one month ago. She also is concerned for possibility of . At this time Patient has no abdominal tenderness, no CVA tenderness. Vitals are stable. Pelvic exam was completed and shows no evidence of significant discharge. No cervical motion tenderness. Urinalysis and cervical cultures were obtained. Urinalysis is positive for infection. We'll start the Patient on antibiotics. Urine culture obtained. Trichomonas test is negative. HCG is negative. Patient reported all results. We'll discharge her with antibiotics. - Lab Data Lab Results 10/03/17 10/03/17 10/03/17 Range/Units 13:55 13:55 14:20 Urine Color Yellow Urine Appearance Turbid H (Clear) Urine pH 6.0 (5.0-8.0) Ur Specific [place]wood 1.024 (1.001-1.035) Urine Protein 3+ H (Negative) Urine Glucose (UA) Negative (Negative) Urine Ketones Trace H (Negative) Urine Blood Moderate H (Negative) Urine Nitrite Negative (Negative) Urine Bilirubin Negative (Negative) Urine Urobilinogen 4.0 (<2.0) mg/dL Ur Leukocyte Esterase Large H (Negative) Urine RBC 119 H (0-5) /hpf Urine WBC >182 H (0-5) /hpf Urine WBC Clumps Few H (None) /hpf Ur Squamous Epith Cells 4 (0-4) /hpf Urine Bacteria Few H (None) /hpf Urine Mucus Moderate H (None) /hpf Urine HCG, Qual Not Detected (Not Detectd) Trichomonas Ag (Rapid) Negative (Negative) Disposition Clinical Impression: UTI (urinary tract infection) Disposition: HOME SELF-CARE Condition: Good Instructions: Urinary Tract Infection in Women (ED) Additional Instructions: Patient advised to take the medication as prescribed. Rest, remain hydrated. Follow-up with primary care provider. Return to the emergency department if any alarming signs or symptoms occur. Prescriptions: Phenazopyridine HCl [Pyridium] 100 mg PO TID #9 tab Sulfamethox-Tmp 800-160Mg [Bactrim DS 800-160 mg] 1 tab PO Q12HR #14 tab Is patient prescribed a controlled substance at d/c from ED?: No When asked, does pt state using other controlled substances?: No If prescribed controlled substance>3 days was MAPS reviewed?: No If opioid is for acute pain is fill amount 7 days or less?: No If Rx opioid, was Start Talking consent form obtained?: No Referrals: None,Stated [Primary Care Provider] - 1-2 days Kathy Stanley MD [STAFF PHYSICIAN] - 1-2 days Time of Disposition: 14:53
[2017-10-03] MEDS ORDERED: SULFAMETH-TMP DS STARTER PACK 2 TAB BTL PO STA (14:53)
[2017-10-03] MEDS ORDERED: PHENAZOPYRIDINE 100 MG TAB PO STA (14:53)
[2017-10-03 15:01] VITALS: BP 120/64; PULSE 80; TEMP 98.3
[2017-10-04 13:56] LABS: C. trachomatis,PCR Negative (Neg,Equiv); Chlamydia trachomatis Source Vagina; N. gonorrhoeae,PCR Negative (Neg,Equiv); Neisseria Source Vagina
== END 2017-10-03 15:15 | disposition home or self-care (01) ==
LOC: EC 13:08
DX: N39.0 Urinary tract infection, site not specified (principal); F17.200 Nicotine dependence, unspecified, uncomplicated
CPT/HCPCS: 81001; 81025; 87070; 87086; 87205; 87491; 87591; 87808; 99284

== ENCOUNTER 2017-12-13 13:07 | Emergency (ER) | payer OTHER ==
[2017-12-13 13:12] VITALS: BP 108/66; PULSE 85; RESP 20; TEMP 97.8
[2017-12-13] MEDS ORDERED: IBUPROFEN 800 MG TAB PO STA (13:31)
--- NOTE | 2017-12-13 13:38 | ED ---
ENT HPI - General Chief complaint: Dental/Oral Stated complaint: jaw injury Time Seen by Provider: 12/13/17 13:18 Source: patient, RN notes reviewed Mode of arrival: ambulatory Limitations: no limitations - History of Present Illness Initial comments: This a 21-year-old female with no past medical history presents today for chief complaint of left-sided jaw pain 2 days. Patient states that 3 days ago she is facing for her friends 1-year-old daughter when she need her in the left- sided face. She denied any pain at that time, stating that it barely hurt. Again half later she began noticing left upper jaw pain, there is increased pain when eating and when opening her mouth wide. Patient woke up this morning and noticed left-sided facial swelling. She was worried that maybe she had her her jaw somehow, but that is unlikely that it was caused by the child earlier that week. Stating it doesn't feel like it's broken. Patient denies fever, chills, dizziness, confusion, difficulty breathing, difficulty swallowing or splint the neck. Patient does have poor dentition, she has multiple missing teeth and cracked teeth. Patient denies any recent fever, chills, shortness of breath, chest pain, back pain, abdominal pain, nausea or vomiting, numbness or tingling, dysuria or hematuria, constipation or diarrhea, headaches or visual changes, or any other complaints. Patient denies current or risk of , stating she is not currently sexually active and when she is she uses condoms. Patient denies any recent shortness of breath, chest pain, back pain, abdominal pain, nausea or vomiting, numbness or tingling, dysuria or hematuria, constipation or diarrhea, headaches or visual changes, or any other complaints. - Related Data Home Medications Medication Instructions Recorded Confirmed Ibuprofen [Motrin Ib] 200 - 400 mg PO Q6H PRN 12/13/17 12/13/17 Previous Rx's Medication Instructions Recorded Ibuprofen [Motrin] 800 mg PO Q8H PRN 7 Days #21 tab 12/13/17 Penicillin V Potassium [Pen Vee K] 500 mg PO QID 7 Days #28 tablet 12/13/17 Allergies Allergy/AdvReac Type Severity Reaction Status Date / Time No Known Allergies Allergy Verified 12/13/17 13:18 Review of Systems ROS Statement: Those systems with pertinent positive or pertinent negative responses have been documented in the HPI. ROS Other: All systems not noted in ROS Statement are negative. Constitutional: Denies: fever, chills, night sweats ENT: Reports: dental pain. Denies: ear pain, throat pain Respiratory: Denies: cough, dyspnea Cardiovascular: Denies: chest pain, palpitations, edema Endocrine: Denies: fatigue Gastrointestinal: Denies: abdominal pain, nausea, vomiting, diarrhea, constipation Genitourinary: Denies: urgency, dysuria Musculoskeletal: Denies: back pain Neurological: Denies: headache, weakness, numbness, paresthesias, confusion, abnormal gait Past Medical History Past Medical History: Asthma Additional Past Medical History / Comment(s): PT STATES OCCASIONAL SHARP PAIN IN CHEST WHEN SHE TAKES A BREATH - STATES HER FATHER HAS THE SAME PROBLEM., MISSED -DENIES ANY VAGINAL BLEEDING. History of Any Multi-Drug Resistant Organisms: None Reported Past Surgical History: Section, Orthopedic Surgery Additional Past Surgical History / Comment(s): left wrist fx, d and c 2014 Past Anesthesia/Blood Transfusion Reactions: No Reported Reaction Additional Past Anesthesia/Blood Transfusion Reaction / Comment(s): STATES SHE WOKE UP CRYING. Past Psychological History: Anxiety, Bipolar, Depression Smoking Status: Current every day smoker Past Alcohol Use History: Occasional Past Drug Use History: None Reported - Past Family History Mother Family Medical History: No Reported History General Exam - General Exam Comments Initial Comments: General: The patient is awake and alert, in no distress, and does not appear acutely ill. Eye: Pupils are equal, round and reactive to light, extra-ocular movements are intact. No nystagmus. There is normal conjunctiva bilaterally. No signs of icterus. Ears, nose, mouth and throat: There are moist mucous membranes and no oral lesions. Patient is overall poor dentition with multiple cracked teeth and caries. Patient is able to fully open jaw, protract, retract and lateral move jaw, as well as clench jaw on tongue depressor with full strength b/l, no evidence of clicking or popping. Pt denies pain when biting down on tongue depressor. Pt admits to pain to palpation over adjacent gingiva neaer tooth #17 which is cracked in half. Pain to palpation over tooth #17, no palpable abscess. No swelling below the tongue. Neck: The neck is supple, there is no tenderness or JVD. No swelling below the mandible bilaterally. No anterior cervical lymph adenopathy. Cardiovascular: There is a regular rate and rhythm. No murmur, rub or gallop is appreciated. Respiratory: Lungs are clear to auscultation, respirations are non-labored, breath sounds are equal. No wheezes, stridor, rales, or rhonchi. Neurological: A&O x 3. CN II-XII intact, There are no obvious motor or sensory deficits. Coordination appears grossly intact. Speech is normal. Skin: Skin is warm and dry and no rashes or lesions are noted. Mild left sided facial swelling. Psychiatric: Cooperative, appropriate mood & affect, normal judgment. Limitations: no limitations Course Vital Signs 12/13/17 13:10 Temperature 97.8 F Pulse Rate 85 Respiratory 20 Rate Blood Pressure 108/66 O2 Sat by Pulse 100 Oximetry Medical Decision Making - Medical Decision Making 21-year-old female chief complaint of left-sided jaw pain. Upon physical examination there is evidence of possible pulpitis or periapical abscess given tenderness to palpation over the adjacent gingiva of tooth #17 and tenderness to percussion of the tooth. No palpable abscess at this time. At this time given the mechanism of injury and symptoms/onset I have low suspicion for any jaw fracture. There is no evidence of TMJ on physical examination. Patient afebrile, no signs or symptoms of Ezequiel's angina or systemic spread of infection. Pt denies risk of . Case discussed with Dr. Pacheco, at this time we feel pt is stable for discharge with f/u in 1-2 days for extraction, PCN VK and ibuprofen for pain mgmt. Pt denied and refused urine today. Pt given information for the reduced/free dental service clinics. Disposition Clinical Impression: Pain, dental Disposition: HOME SELF-CARE Condition: Good Instructions: Dental Abscess (ED) Additional Instructions: Please use medication as discussed. Please follow-up with dentist in the next 1 -2 days for extraction. Please return to emergency room if the symptoms increase or worsen or for any other concerns, as discussed. Prescriptions: Ibuprofen [Motrin] 800 mg PO Q8H PRN 7 Days #21 tab PRN Reason: Pain Penicillin V Potassium [Pen Vee K] 500 mg PO QID 7 Days #28 tablet Is patient prescribed a controlled substance at d/c from ED?: No Referrals: None,Stated [Primary Care Provider] - 1-2 days Morgan Newman DDS [STAFF PHYSICIAN] - 1-2 days Time of Disposition: 13:38
== END 2017-12-13 13:45 | disposition home or self-care (01) ==
LOC: EC 13:07
DX: K02.9 Dental caries, unspecified (principal); K03.81 Cracked tooth; K08.409 Partial loss of teeth, unspecified cause, unspecified class; R68.84 Jaw pain; R22.0 Localized swelling, mass and lump, head; F17.200 Nicotine dependence, unspecified, uncomplicated
CPT/HCPCS: 99283

== ENCOUNTER 2018-01-09 03:30 | Emergency (ER) | payer OTHER ==
--- NOTE | 2018-01-09 03:49 | ED ---
Allergic Reaction HPI - General Chief complaint: Allergic Reaction Stated complaint: Allergic reaction Time Seen by Provider: 01/09/18 03:48 Source: patient Mode of arrival: ambulatory Limitations: no limitations - History of Present Illness Initial Comments: Cynthia is a 22-year-old female with a history of intermittent hives which she has seen her primary care for but never had any formal diagnosis of why they occurred. 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 She denies any new food, medication , lotion, soap exposures. She reports that towards the end of work she noted that she had hives on her feet, hands, redness of her chest and she felt like her tongue was burning. She reports this is similar to previous episodes. She reports that in the past these episodes of been treated with Benadryl and steroids with improvement in her symptoms. The patient denies any chest pain, palpitations, shortness of breath or wheezing. - Related Data Home Medications Medication Instructions Recorded Confirmed No Known Home Medications 12/28/17 01/09/18 Allergies Allergy/AdvReac Type Severity Reaction Status Date / Time No Known Allergies Allergy Verified 01/09/18 03:42 Review of Systems ROS Statement: Those systems with pertinent positive or pertinent negative responses have been documented in the HPI. ROS Other: All systems not noted in ROS Statement are negative. Past Medical History Past Medical History: Asthma Additional Past Medical History / Comment(s): PT STATES OCCASIONAL SHARP PAIN IN CHEST WHEN SHE TAKES A BREATH - STATES HER FATHER HAS THE SAME PROBLEM., MISSED -DENIES ANY VAGINAL BLEEDING. History of Any Multi-Drug Resistant Organisms: None Reported Past Surgical History: Section, Orthopedic Surgery Additional Past Surgical History / Comment(s): left wrist fx, d and c 2014 Past Anesthesia/Blood Transfusion Reactions: No Reported Reaction Additional Past Anesthesia/Blood Transfusion Reaction / Comment(s): STATES SHE WOKE UP CRYING. Past Psychological History: Anxiety, Bipolar, Depression Smoking Status: Current every day smoker Past Alcohol Use History: Occasional Past Drug Use History: Marijuana - Past Family History Mother Family Medical History: No Reported History General Exam - General Exam Comments Initial Comments: GENERAL: Patient is well-developed and well-nourished. Patient is nontoxic and well- hydrated and is in no distress. HENT: Normocephalic, Atraumatic. Neck is soft and supple. No significant lymphadenopathy is noted. Oropharynx is clear. Moist mucous membranes. Neck has full range of motion without eliciting any pain. No angioedema of the lips, tongue or posterior oropharynx EYES: The sclera were anicteric and conjunctiva were pink and moist. Extraocular movements were intact and pupils were equal round and reactive to light. Eyelids were unremarkable. PULMONARY: Unlabored respirations. Good breath sounds bilaterally. No audible rales rhonchi or wheezing was noted. No wheezing CARDIOVASCULAR: There is a regular rate and rhythm without any murmurs gallops or rubs. ABDOMEN: Soft and nontender with normal bowel sounds. SKIN: Hives noted on bilateral feet, shins, hands, forearms, some redness and flushing of the neck and chest NEUROLOGIC: Patient is alert and oriented x3. Cranial nerves II through XII are grossly intact. Motor and sensory are also intact. Normal speech, volume and content. Symmetrical smile. MUSCULOSKELETAL: Normal extremities with adequate strength and full range of motion. No lower extremity swelling or edema. No calf tenderness. LYMPHATICS: No significant lymphadenopathy is noted PSYCHIATRIC: Normal psychiatric evaluation. Limitations: no limitations Limitations: no limitations Course Vital Signs 01/09/18 01/09/18 03:39 05:03 Temperature 98.5 F Pulse Rate 100 82 Respiratory 20 16 Rate Blood Pressure 103/71 97/54 O2 Sat by Pulse 98 97 Oximetry Medical Decision Making - Medical Decision Making The patient was seen and evaluated, history was obtained from the patient Oral Benadryl and prednisone were ordered Patient reevaluated after Benadryl. I did improve significantly. She denies any persistent pruritus. Reports improvement in the sensation of burning of her tongue. This 70 feel the patient is stable for discharge home. Due to history of being on her current steroids again I'll only give multiple doses. Advised the patient follow up with a primary care physician as well as referral to ALLER[facility] immunology for further evaluation. Disposition Clinical Impression: Urticaria Disposition: HOME SELF-CARE Condition: Good Instructions: Urticaria (ED) Is patient prescribed a controlled substance at d/c from ED?: No Referrals: None,Stated [Primary Care Provider] - 1-2 days [facility] [NON-STAFF] - 1-2 days Pooja Chandra MD [STAFF PHYSICIAN] - 1-2 days Padmini Cohen MD [STAFF PHYSICIAN] - 1-2 days Time of Disposition: 06:17
[2018-01-09] MEDS ORDERED: predniSONE 20 MG TAB PO STA (04:16)
[2018-01-09] MEDS ORDERED: diphenhydrAMINE 50 MG CAP PO STA (04:16)
[2018-01-09 06:22] VITALS: BP 101/58; PULSE 66; RESP 18; TEMP 97.8
== END 2018-01-09 06:25 | disposition home or self-care (01) ==
LOC: EC 03:30
DX: L50.9 Urticaria, unspecified (principal); F17.200 Nicotine dependence, unspecified, uncomplicated
CPT/HCPCS: 99283; J7512